=== PATIENT | female | born 1985 | race Hispanic/Latino ===

== ENCOUNTER 2017-02-20 09:41 | Emergency (ER) | payer MEDICAID ==
[2017-02-20 09:41] VITALS: BMI 32.2
--- NOTE | 2017-02-20 10:28 | ED PDOC ---
HPI: General Adult Time Seen by Provider: 02/20/17 09:53 Chief Complaint (Nursing): GI Problem Chief Complaint (Provider): Vomiting History Per: Patient History/Exam Limitations: no limitations Onset/Duration Of Symptoms: Days (4) Have you had recent travel within the past 21 days to any of the following countries: [place], [place], [place] or [place]?: No Current Symptoms Are (Timing): Still Present Additional Complaint(s): Vomiting, nonbloody today. Has had cough, congestion, runny nose, sore throat for 4 days. Also palpitations off and on. No chest pain, abd pain, back pain, weakness, headaches, leg pain. No fever. Multiple people at work with the same. Takes oxycodone daily 30mg. No numbness, tingles. Past Medical History Vital Signs: Last Vital Signs Temp 98.2 F 02/20/17 09:44 Pulse 80 02/20/17 09:44 Resp 19 02/20/17 09:44 BP 150/94 H 02/20/17 09:44 Pulse Ox 96 02/20/17 10:32 - Medical History PMH: Anxiety, Back Problems, Depression, Diabetes, Gastritis, Gastrointestinal Ulcer, Hiatal Hernia, HTN, Kidney Stones Denies: HIV, Seizures, Sexually Transmitted Disease - Surgical History Surgical History: - Family History Family History: States: Unknown Family Hx - Social History Current smoker - smoking cessation education provided: No Alcohol: None Drugs: Denies - Immunization History Hx Tetanus Toxoid Vaccination: No Hx Influenza Vaccination: No Hx Pneumococcal Vaccination: No - Home Medications Home Medications: Ambulatory Orders Medication Instructions Recorded Lactobacillus Acidophilus 1 tab PO DAILY 06/01/16 [Acidophilus] Lisinopril [Zestril] 20 mg PO DAILY 06/01/16 Omeprazole 20 mg PO DAILY 06/01/16 Insulin Glargine, Recombina 20 unit SQ DAILY 07/10/16 [Lantus] Insulin Lispro [Humalog] 1 units SQ PRN PRN 07/10/16 Levomefolate/Algal Oil 1 cap PO DAILY 07/10/16 [[place]-Algal Oil 7.5 mg Cap] Cyclobenzaprine [Cyclobenzaprine 10 mg PO TID PRN #30 tab 07/13/16 HCl] Gabapentin [Neurontin] 100 mg PO TID #0 cap 07/13/16 [place] Carbonate [[place] 300 mg PO TID #0 cap 07/13/16 Carbonate 300MG] Cephalexin [Keflex] 500 mg PO BID #14 capsule 08/27/16 Hydrocodone/Acetaminophen 1 each PO Q6 PRN #12 tablet 08/27/16 [Hydrocodon-Acetaminophen 5-325] Ondansetron [Zofran] 4 mg PO Q8H PRN #6 tab 02/20/17 - Allergies Allergies/Adverse Reactions: Allergies Allergy/AdvReac Type Severity Reaction Status Date / Time haloperidol [From Haldol] AdvReac FATIGUE Verified 08/27/16 18:15 haloperidol lactate AdvReac FATIGUE Verified 08/27/16 18:15 [From Haldol] ziprasidone HCl [From Geodon] AdvReac FATIGUE Verified 08/27/16 18:15 ziprasidone mesylate AdvReac FATIGUE Verified 08/27/16 18:15 [From Geodon] Review of Systems ROS Statement: Except As Marked, All Systems Reviewed And Found Negative ENT: Positive for: Nose Pain, Nose Congestion, Throat Pain Respiratory: Positive for: Cough Gastrointestinal: Positive for: Nausea, Vomiting Physical Exam - Reviewed Nursing Documentation Reviewed: Yes Vital Signs Reviewed: Yes - Physical Exam Appears: Positive for: Non-toxic, No Acute Distress Head Exam: Positive for: ATRAUMATIC, NORMAL INSPECTION, NORMOCEPHALIC Skin: Positive for: Normal Color, Warm, DRY Eye Exam: Positive for: EOMI, Normal appearance, PERRL ENT: Positive for: Normal ENT Inspection Neck: Positive for: Normal, Painless ROM, Supple Cardiovascular/Chest: Positive for: Regular Rate, Rhythm Respiratory: Positive for: CNT, Normal Breath Sounds Gastrointestinal/Abdominal: Positive for: Normal Exam, Bowel Sounds, Soft. Negative for: Tenderness Back: Positive for: Normal Inspection. Negative for: L CVA Tenderness, R CVA Tenderness Extremity: Positive for: Normal ROM. Negative for: Tenderness, Pedal Edema Neurologic/Psych: Positive for: Alert, weight loss sales consultant II-XII, Oriented. Negative for: Motor/Sensory Deficits - Laboratory Results Result Diagrams: 02/20/17 11:17 02/20/17 11:17 Interpretation Of Abn Labs: 343 glucose - ECG ECG: Positive for: Interpreted By Me, Viewed By Me ECG Rhythm: Positive for: Normal ST Segment, Sinus Rhythm O2 Sat by Pulse Oximetry: 96 Pulse Ox Interpretation: Normal - Progress ED Course And Treament: 1533: Stable. AAOx3. Pain free. Tolerated PO. Fu with pcp. Disposition - Clinical Impression Clinical Impression: URI (upper respiratory infection) - Patient ED Disposition Is Patient to be Admitted: No Counseled Patient/Family Regarding: Studies Performed, Diagnosis, Need For Followup, Rx Given - Disposition Referrals: [facility] [Outside] - 02/21/17 Disposition: Routine/Home Disposition Time: 13:34 Condition: STABLE Additional Instructions: Return if not better in 3 days. Prescriptions: Ondansetron [Zofran] 4 mg PO Q8H PRN #6 tab PRN Reason: Nausea/Vomiting Instructions: Upper Respiratory Infection (ED)
[2017-02-20] MEDS: Sodium Chloride 0.9% 1,000 ML IV STA (10:49)
[2017-02-20 11:21] LABS: BASO # 0.1 K/uL (0.0-0.2); BASO % 0.9 % (0.0-2.0); EOS # 0.3 K/uL (0.0-0.7); EOS % 2.9 % (0.0-4.0); LYMPH # 3.3 K/uL (1.0-4.3); LYMPH % 28.8 % (20.0-40.0); MEAN CORPUSCULAR HEMOGLOBIN 30.6 pg (27.0-31.0); MEAN CORPUSCULAR HGB CONC 33.7 g/dL (33.0-37.0); MEAN PLATELET VOLUME 10.1 fl (7.2-11.7); MONO # 0.8 K/uL (0.0-0.8); NEUT # 6.8 K/uL (1.8-7.0); NEUT % 60.4 % (50.0-75.0); NRBC % 0.1 % (0.0-0.0); WHITE BLOOD COUNT 11.3 K/uL (4.8-10.8)
[2017-02-20 11:23] LABS: MEAN CELL VOLUME 90.7 fl (81.0-99.0)
[2017-02-20 11:33] LABS: ALB/GLOB RATIO 1.4 (1.0-2.1); ALKALINE PHOSPHATASE 123 U/L (38-126); ALT/SGPT 34 U/L (9-52); AST/SGOT 25 U/L (14-36); BILIRUBIN,TOTAL 0.3 mg/dl (0.2-1.3); BLOOD UREA NITROGEN 15 mg/dl (7-17); CALCIUM 9.5 mg/dL (8.4-10.2); CARBON DIOXIDE 26 mmol/L (22-30); CHLORIDE 100 mmol/L (98-107); GFR AFRICAN-AMERICAN > 60; GLUCOSE,RANDOM 343 mg/dL (65-105); LIPASE 163 U/L (23-300); POTASSIUM 4.1 MMOL/L (3.6-5.0); SODIUM 139 mmol/l (132-148); TOTAL PROTEIN 6.6 G/DL (6.3-8.2)
--- NOTE | 2017-02-20 11:49 | CARD ---
APPROVED REPORT EKG Measurement Heart [id number] <Conclusion> Normal sinus rhythm Normal ECG
[2017-02-20 13:50] VITALS: BP 129/76; PULSE 77; RESP 16; TEMP 98; O2SAT 98
== END 2017-02-20 13:50 | disposition home or self-care (01) ==
LOC: H.ER 09:41
DX: J06.9 Acute upper respiratory infection, unspecified (principal); R11.10 Vomiting, unspecified; E11.9 Type 2 diabetes mellitus without complications; I10 Essential (primary) hypertension; Z79.4 Long term (current) use of insulin; R00.2 Palpitations

== ENCOUNTER 2017-06-04 18:40 | Inpatient (IN) | payer MEDICAID ==
[2017-06-04 18:40] VITALS: BMI 32.2
--- NOTE | 2017-06-04 20:25 | ED PDOC ---
HPI: Psych/Substance Abuse Time Seen by Provider: 06/04/17 19:13 Chief Complaint (Nursing): Substance Abuse Chief Complaint (Provider): Substance Abuse ED Caveat: Other (patient is intoxicated so history may be unreliable ) History Per: Patient History/Exam Limitations: no limitations Onset/Duration Of Symptoms: Hrs (prior to arrival ) Additional Complaint(s): Deborah Hernandez, 31 year old female with a past medical history inclusive of Depression, hypertension, diabetes, and chronic back pain, was found lying on the street and brought to the ED for drug abuse and alcohol intoxication. Upon arrival, the patient was lethargic but upon evaluation, the patient was awake. She admits to smoking weed, taking PCP, drinking alcohol, and then filling and taking Neurontin and Trazadone, for which she normally takes for chronic back pain. She states her medications are the reason as to why she is so sleepy. The patient reports feeling depressed due to her chronic pain and has thoughts of hurting herself. She denies any hallucinations. PMD: None provided Past Medical History Reviewed: Historical Data, Nursing Documentation, Vital Signs Vital Signs: Last Vital Signs Temp 100.6 F H 06/04/17 18:44 Pulse 148 H 06/04/17 18:44 Resp 22 06/04/17 18:44 BP 163/104 H 06/04/17 18:44 Pulse Ox 98 06/04/17 18:44 - Medical History PMH: Anxiety (drug induced), Back Problems, Bipolar Disorder, Depression, Diabetes, Gastritis, Gastrointestinal Ulcer, Hiatal Hernia, HTN, Kidney Stones ( history), Pancreatitis Denies: Hepatitis, HIV, Seizures, Sexually Transmitted Disease - Surgical History Surgical History: - Family History Family History: States: Unknown Family Hx - Social History Current smoker - smoking cessation education provided: Yes Alcohol: Other (drinks heavily) Drugs: Cannabis - Immunization History Hx Tetanus Toxoid Vaccination: No Hx Influenza Vaccination: No Hx Pneumococcal Vaccination: No - Home Medications Home Medications: Ambulatory Orders Medication Instructions Recorded Lisinopril [Zestril] 20 mg PO DAILY 06/01/16 Insulin Glargine, Recombina 30 unit SQ DAILY 07/10/16 [Lantus] Insulin Lispro [Humalog] 1 units SQ PRN PRN 07/10/16 Ibuprofen [Motrin] 600 mg PO TID #30 tab 04/28/17 Omeprazole 20 mg PO PRN PRN 05/01/17 Gabapentin [Neurontin] 300 mg PO TID 14 Days 05/05/17 Sertraline [Zoloft] 50 mg PO DAILY #14 tab 05/05/17 hydrOXYzine HCl [Atarax] 25 mg PO BID 14 Days 05/05/17 traZODone [Desyrel] 100 mg PO HS #14 tab 05/05/17 - Allergies Allergies/Adverse Reactions: Allergies Allergy/AdvReac Type Severity Reaction Status Date / Time quetiapine [From Seroquel] Allergy Verified 04/28/17 17:30 ciprofloxacin [From Cipro] AdvReac Verified 04/28/17 17:30 haloperidol [From Haldol] AdvReac FATIGUE Verified 04/28/17 17:30 haloperidol lactate AdvReac FATIGUE Verified 04/28/17 17:30 [From Haldol] ziprasidone HCl [From Geodon] AdvReac FATIGUE Verified 04/28/17 17:30 ziprasidone mesylate AdvReac FATIGUE Verified 04/28/17 17:30 [From Geodon] Review of Systems ROS Statement: Except As Marked, All Systems Reviewed And Found Negative Musculoskeletal: Positive for: Neck Pain, Back Pain Psych: Positive for: Anxiety, Depression, Suicidal ideation. Negative for: Other (hallucinations) Physical Exam - Reviewed Nursing Documentation Reviewed: Yes Vital Signs Reviewed: Yes - Physical Exam Appears: Negative for: Non-toxic (intoxicated ) Head Exam: Positive for: ATRAUMATIC, NORMAL INSPECTION, NORMOCEPHALIC Skin: Positive for: Normal Color, Warm, Dry Eye Exam: Positive for: EOMI, Conjunctival injection ENT: Positive for: Pharynx Is (clear), TM Is/Are (tachy mucous membranes), Other Neck: Positive for: Normal, Painless ROM, Supple Cardiovascular/Chest: Positive for: Regular Rate, Rhythm, Chest Non Tender. Negative for: Murmur Respiratory: Positive for: Normal Breath Sounds. Negative for: Respiratory Distress Gastrointestinal/Abdominal: Positive for: Normal Exam, Bowel Sounds, Soft. Negative for: Tenderness Back: Positive for: Normal Inspection. Negative for: Vertebral Tenderness Extremity: Positive for: Normal ROM. Negative for: Deformity Lymphatic: Negative for: Adenopathy Neurologic/Psych: Positive for: Alert, Oriented (x3), Mood/Affect (agitated mood with anxious and angry affect ). Negative for: Motor/Sensory Deficits - Laboratory Results Result Diagrams: 06/04/17 20:37 06/04/17 20:37 - ECG O2 Sat by Pulse Oximetry: 98 (RA) Pulse Ox Interpretation: Normal Medical Decision Making Medical Decision Making: Impression: Possible substance abuse and depression Plan: * ED EKG * Labs * Crisis Evaluation As Ordered * 1:1 Observation Continued Pt evaluated by front desk worker and stable for discharge. Scribe Attestation: Documented by Odette Sharp, acting as a scribe for Joycelyn Brandon MD. Provider Scribe Attestation: All medical record entries made by the Scribe were at my direction and personally dictated by me. I have reviewed the chart and agree that the record accurately reflects my personal performance of the history, physical exam, medical decision making, and the department course for this patient. I have also personally directed, reviewed, and agree with the discharge instructions and disposition. Disposition - Clinical Impression Clinical Impression: Polysubstance abuse Counseled Patient/Family Regarding: Studies Performed, Diagnosis - Disposition Referrals: [facility] [Outside] [facility] [Outside] (YOU CAN START GOING TO THE CLINIC TO BE REFERRED TO THE [facility]) Disposition: Routine/Home Disposition Time: 21:00 Condition: STABLE Instructions: Polysubstance Abuse (ED), Chronic Pain (ED)
[2017-06-04 20:42] LABS: BASO # 0.1 K/uL (0.0-0.2); BASO % 0.8 % (0.0-2.0); EOS # 0.2 K/uL (0.0-0.7); EOS % 1.8 % (0.0-4.0); HEMOGLOBIN 13.7 g/dL (12.0-16.0); MEAN CELL VOLUME 92.3 fl (81.0-99.0); MEAN CORPUSCULAR HGB CONC 33.6 g/dL (33.0-37.0); MEAN PLATELET VOLUME 9.5 fl (7.2-11.7); MONO # 0.8 K/uL (0.0-0.8); MONO % 7.3 % (0.0-10.0); NEUT # 6.3 K/uL (1.8-7.0); NEUT % 61.1 % (50.0-75.0); RBC 4.44 Mil/uL (3.80-5.20); RED CELL DISTRIBUTION WIDTH 13.5 % (11.5-14.5); WHITE BLOOD COUNT 10.4 K/uL (4.8-10.8)
[2017-06-04 20:49] LABS: SQUAMOUS EPITHIAL 3 /hpf (0-5); URINE AMORPHOUS SEDIMENT RARE /ul (<OCC); URINE BILIRUBIN NEGATIVE (NEGATIVE); URINE BLOOD NEGATIVE (NEGATIVE); URINE CLARITY SLIGHTY-CLOUDY (Clear); URINE COLOR YELLOW (YELLOW); URINE GLUCOSE (UA) NEG (Normal); URINE LEUKOCYTE ESTERASE NEG Leu/uL (Negative); URINE NITRATE NEGATIVE (NEGATIVE); URINE PROTEIN NEGATIVE (NEGATIVE); URINE UROBILINOGEN 0.2-1.0 mg/dL (0.2-1.0)
[2017-06-04 20:54] LABS: SALICYLATE < 1.0 mg/dl
[2017-06-04 20:56] LABS: ALB/GLOB RATIO 1.4 (1.0-2.1); ALBUMIN 4.7 g/dL (3.5-5.0); ALT/SGPT 88 U/L (9-52); AST/SGOT 53 U/L (14-36); BLOOD UREA NITROGEN 9 mg/dl (7-17); CALCIUM 9.8 mg/dL (8.4-10.2); GFR AFRICAN-AMERICAN > 60; GFR NON-AFRICAN AMERICAN > 60; MAGNESIUM 1.8 MG/DL (1.6-2.3)
[2017-06-04 21:00] LABS: ACETAMINOPHEN < 10.0 ug/ml (10.0-30.0)
[2017-06-04 21:48] LABS: BARBITURATES, UR NEGATIVE (NEGATIVE); BENZODIAZEPINES, UR POSITIVE (NEGATIVE); OPIATES, UR NEGATIVE (NEGATIVE); PHENCYCLIDINE, UR POSITIVE (NEGATIVE)
[2017-06-04] MEDS ORDERED: Magnesium Hydroxide Susp 30 ml UD PO PRN (23:45)
[2017-06-04] MEDS ORDERED: DiphenhydrAMINE 50 mg/ml Inj IM PRN (23:45)
[2017-06-04] MEDS ORDERED: Alum-Mag Hydrox-Simethicone Susp (30 mL) PO PRN (23:45)
[2017-06-04 23:54] VITALS: O2SAT 94
--- NOTE | 2017-06-05 07:26 | CARD ---
APPROVED REPORT EKG Measurement Heart [id number] <Conclusion> Sinus tachycardia Otherwise normal ECG
[2017-06-05] MEDS: Insulin Lispro (humaLOG) 100 Units/ml Inj SC SCH ×2 (08:24→12:52)
[2017-06-05] MEDS ORDERED: Pantoprazole 20 mg EC Tab PO SCH (09:00)
[2017-06-05 09:06] LABS: T4 7.35 ug/dl (5.5-11.0)
[2017-06-05 09:15] VITALS: BP 139/75; PULSE 81; RESP 18; TEMP 98.5
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
--- NOTE | 2017-06-05 12:17 | RAD ---
HISTORY: admission COMPARISON: 03/01/2016. FINDINGS: LUNGS: No active pulmonary disease. PLEURA: No significant pleural effusion identified, no pneumothorax apparent. CARDIOVASCULAR: Normal. OSSEOUS STRUCTURES: No significant abnormalities. VISUALIZED UPPER ABDOMEN: Normal. OTHER FINDINGS: None. IMPRESSION: No active disease. No significant interval change compared to the prior examination(s).
--- NOTE | 2017-06-05 13:01 | PCM.PSYCH ---
Initial Psychiatric Evaluation - Initial Psychiatric Evaluation Type of Admission: Voluntary Legal Status: Capacity Chief Complaint (in patient's own words): i was hoping i could leave today Patient's Reaction to Hospitalization: cooperative History of Present Illness and Precipitating Events: pt with a history of depression, pcp abuse/dependence. she is struggling to stay sober. she has chronic back pain which she states triggers her pcp use. she states she is [place] and taking her medications. her urine was also positive for benzos. she states she cannot recall the details of why she signed in to the hospital and she states she only has suicidal thoughts when she uses drugs. she states she is not suicidal and she wants to be referred to an outpatient program to help with her sobriety. she reports she is working. she lives with her bf of 15 years whom she states is supportive. she denies any symptoms of jorge, psychosis or depression. she is willing to follow up at [facility] and with her NA supports. Current Medications: Active Medications Generic Name Dose Route Start Last Admin Trade Name Freq PRN Reason Stop Dose Admin Acetaminophen 650 mg 06/04/17 23:45 Tylenol 325mg Tab PO Q4 PRN Pain, moderate (4-7) Al Hydrox/Mg Hydrox/Simethicone 30 ml 06/04/17 23:45 Maalox Plus 30 Ml PO Q4 PRN Dyspepsia Diphenhydramine HCl 50 mg 06/04/17 23:45 Benadryl IM Q6 PRN Extrapyramidal S/S Unable PO Diphenhydramine HCl 50 mg 06/04/17 23:45 Benadryl PO Q6 PRN Extrapyramidal Symptoms Diphenhydramine HCl 50 mg 06/04/17 23:50 Benadryl PO HS PRN Sleep Gabapentin 300 mg 06/05/17 09:00 06/05/17 09:09 Neurontin PO 300 mg TID SUNITA Administration Insulin Detemir 30 units 06/05/17 22:00 Levemir SC HS SUNITA Insulin Human Lispro 0 units 06/05/17 07:30 06/05/17 12:52 Humalog SC 2 units ACHS SUNITA Administration Protocol Lisinopril 20 mg 06/05/17 09:00 06/05/17 09:44 Zestril PO Not Given DAILY SUNITA Lorazepam 2 mg 06/04/17 23:45 Ativan IM Q4 PRN Anxiety/Agitation,Unable PO Lorazepam 1 mg 06/05/17 01:20 Ativan PO Q4 PRN Anxiety/Agitation Magnesium Hydroxide 30 ml 06/04/17 23:45 Milk Of Magnesia PO HS PRN Constipation Pantoprazole Sodium 20 mg 06/05/17 09:00 06/05/17 09:09 Protonix Ec Tab PO 20 mg DAILY SUNITA Administration Sertraline HCl 50 mg 06/05/17 11:45 Zoloft PO DAILY SUNITA Past Psychiatric History - Past Psychiatric History Previous Treatment History: Inpatient Prior Professional Help: history of previous admissions. history of pcp use Prior Psychiatric Treatment: states she stopped seroquel secondary to metabolic se Explanation of [facility] treatment[facility]. History of Abuse: does not disclose any abuse at this time. History of ETOH/Drug Use: pcp use- states she was sober or 7 days prior to this admission. admits to smoking mj 1-2 x a month, using alcohol ocassionally, but gets drunk every time she uses. has tried synthetic mj in past. has bought opioids off street to treat her back pain. smokes cigarettes occasionally History of Family Illness: denies Pertinent Medical Hx (Current Medical&Sleep Prob, Allergies): Allergies Allergy/AdvReac Type Severity Reaction Status Date / Time aripiprazole [From Abilify] Allergy ANAPHYLAXIS Verified 06/05/17 06:03 bupropion [From Wellbutrin] Allergy ANAPHYLAXIS Verified 06/05/17 06:03 escitalopram [From Lexapro] Allergy ANAPHYLAXIS Verified 06/05/17 06:03 lurasidone [From Latuda] Allergy ANAPHYLAXIS Verified 06/05/17 06:03 quetiapine [From Seroquel] Allergy ANAPHYLAXIS Verified 06/05/17 06:03 topiramate [From Topamax] Allergy ANAPHYLAXIS Verified 06/05/17 06:03 ciprofloxacin [From Cipro] AdvReac RASH Verified 06/05/17 06:03 haloperidol [From Haldol] AdvReac FATIGUE Verified 04/28/17 17:30 haloperidol lactate AdvReac FATIGUE Verified 04/28/17 17:30 [From Haldol] ziprasidone HCl [From Geodon] AdvReac FATIGUE Verified 04/28/17 17:30 ziprasidone mesylate AdvReac FATIGUE Verified 04/28/17 17:30 [From Geodon] Lisinopril [Zestril] 20 mg PO DAILY 06/01/16 Insulin Glargine, Recombina [Lantus] 30 unit SQ DAILY 07/10/16 Insulin Lispro [Humalog] 1 units SQ PRN PRN 07/10/16 Ibuprofen [Motrin] 600 mg PO TID #30 tab 04/28/17 Omeprazole 20 mg PO PRN PRN 05/01/17 Gabapentin [Neurontin] 300 mg PO TID 14 Days 05/05/17 Sertraline [Zoloft] 50 mg PO DAILY #14 tab 05/05/17 hydrOXYzine HCl [Atarax] 25 mg PO BID 14 Days 05/05/17 traZODone [Desyrel] 100 mg PO HS #14 tab 05/05/17 insulin dependent diabetes, back pain Review of Systems - Psychiatric Psychiatric: As Per [facility] Mental Status Examination - Personal Presentation Personal Presentation: Looks stated age - Affect Affect: Broad - Motor Activity Motor Activity: Calm - Reliability in Providing Information Reliability in Providing Information: Good - Speech Speech: Organized - Mood Mood: Neutral - Formal Thought Process Formal Thought Process: No Impairment - Obsessions/Compulsions Obsessions: No Compulsions: No - Cognitive Functions Orientation: Person, Place, Situation, Time Sensorium: Alert Attention/Concentration: Attentive Abstract Thinking: [place] Estimate of Intelligence: Average Judgement: Intact, as evidence by: Insight regarding need for hospitalization Memory: Recent intact, as evidence by: Ability to recall events of the day, Remote intact, as evidenced by: Abilit to recall sig. life events - Risk Risk: Suicidal (denies any suicidal or homicidal thoughts/plans or intent) - Strength & Assets Inventory Strength & Assets Inventory: Intelligence - Limitations Limitations: Other (substance use) DSM 5 DX - DSM 5 DSM 5 Diagnosis: pcp dependence depression unspecified - Recommended/Plan of Treatment Treatment Recommendations and Plan of Treatment: admit to 3 for safety and observation gather collateral information provide supportive therapy adjust medications hospitalist consult disposition planing- dc home with [facility] referral. Projected ELOS: 1-2 days - Smoking Cessation Smoking Cessation Initiated: No
[2017-06-05] MEDS ORDERED: Insulin Detemir 100 Units/ml Inj SC SCH (22:00)
== END 2017-06-05 13:56 | disposition home or self-care (01) | DRG 748 ==
LOC: H.ER 18:40 → H.ERHOLD 22:24 → H.PSYCH 23:36
PROVIDERS: ADMIT Psychiatry & Neurology Psychiatry; ATTEND Psychiatry & Neurology Psychiatry
PROC: HZ59ZZZ Individual Psychotherapy for Substance Abuse Treatment, Supportive (ICD-10-PCS; principal; 2017-06-04)
DX: F16.229 Hallucinogen dependence with intoxication, unspecified (principal); R45.851 Suicidal ideations; F12.129 Cannabis abuse with intoxication, unspecified; F13.129 Sedative, hypnotic or anxiolytic abuse with intoxication, unspecified; Z91.14 Patient's other noncompliance with medication regimen; I10 Essential (primary) hypertension; F32.9 Major depressive disorder, single episode, unspecified; F10.129 Alcohol abuse with intoxication, unspecified; Y90.0 Blood alcohol level of less than 20 mg/100 ml; F41.9 Anxiety disorder, unspecified; G89.29 Other chronic pain; K21.9 Gastro-esophageal reflux disease without esophagitis; E11.9 Type 2 diabetes mellitus without complications; Z79.4 Long term (current) use of insulin; K29.70 Gastritis, unspecified, without bleeding; K44.9 Diaphragmatic hernia without obstruction or gangrene; F17.210 Nicotine dependence, cigarettes, uncomplicated; R79.89 Other specified abnormal findings of blood chemistry

== ENCOUNTER 2017-06-18 11:51 | Emergency (ER) | payer MEDICAID ==
[2017-06-18 12:24] VITALS: RESP 16; TEMP 98; O2SAT 100
[2017-06-18 12:25] VITALS: BMI 34.4
[2017-06-18 13:15] LABS: SQUAMOUS EPITHIAL 6 /hpf (0-5); URINE BACTERIA MANY (<OCC); URINE BILIRUBIN NEGATIVE (NEGATIVE); URINE BLOOD NEGATIVE (NEGATIVE); URINE CLARITY CLOUDY (Clear); URINE COLOR YELLOW (YELLOW); URINE GLUCOSE (UA) 50 mg/dL (Normal); URINE LEUKOCYTE ESTERASE NEG Leu/uL (Negative); URINE NITRATE NEGATIVE (NEGATIVE); URINE PROTEIN NEGATIVE (NEGATIVE); URINE UROBILINOGEN 0.2-1.0 mg/dL (0.2-1.0)
[2017-06-18 13:27] LABS: BARBITURATES, UR NEGATIVE (NEGATIVE)
[2017-06-18 13:28] LABS: BENZODIAZEPINES, UR NEGATIVE (NEGATIVE)
[2017-06-18 13:31] LABS: OPIATES, UR NEGATIVE (NEGATIVE)
[2017-06-18 13:32] LABS: PHENCYCLIDINE, UR POSITIVE (NEGATIVE)
[2017-06-18 13:37] LABS: BASO # 0.1 K/uL (0.0-0.2); BASO % 0.8 % (0.0-2.0); EOS # 0.1 K/uL (0.0-0.7); EOS % 0.7 % (0.0-4.0); HEMOGLOBIN 13.5 g/dL (12.0-16.0); LYMPH % 21.2 % (20.0-40.0); MEAN CELL VOLUME 92.6 fl (81.0-99.0); MEAN CORPUSCULAR HEMOGLOBIN 32.1 pg (27.0-31.0); MEAN CORPUSCULAR HGB CONC 34.7 g/dL (33.0-37.0); MONO # 0.8 K/uL (0.0-0.8); NEUT # 6.3 K/uL (1.8-7.0); NEUT % 68.3 % (50.0-75.0); RBC 4.19 Mil/uL (3.80-5.20); RED CELL DISTRIBUTION WIDTH 13.7 % (11.5-14.5); WHITE BLOOD COUNT 9.3 K/uL (4.8-10.8)
[2017-06-18 13:51] LABS: ALBUMIN 4.4 g/dL (3.5-5.0)
[2017-06-18 13:54] LABS: ALB/GLOB RATIO 1.4 (1.0-2.1); ALT/SGPT 33 U/L (9-52); AST/SGOT 24 U/L (14-36); BLOOD UREA NITROGEN 7 mg/dl (7-17); CALCIUM 10.2 mg/dL (8.4-10.2); GFR AFRICAN-AMERICAN > 60; GFR NON-AFRICAN AMERICAN > 60; LIPASE 187 U/L (23-300)
[2017-06-18 15:51] VITALS: BP 158/95; PULSE 64
--- NOTE | 2017-06-18 15:53 | ED PDOC ---
HPI: Abdomen Time Seen by Provider: 06/18/17 13:14 Chief Complaint (Nursing): GI Problem Chief Complaint (Provider): abdominal pain/vomiting History Per: Patient (31 y/o female h/o polysubstance abuse here with abdominal discomfort and one episode of vomiting yesterday. NOtes fullness in abdomen and urinary frequency. denies any fevers/chills. Admits use of pcp today. States she attempted detox of alcohol/pcp x 4 days. Notes suicidal ideation x 4 days but not today. No plan noted.) Past Medical History Reviewed: Historical Data, Nursing Documentation, Vital Signs Vital Signs: Last Vital Signs Temp 98.0 F 06/18/17 12:23 Pulse 90 06/18/17 12:23 Resp 16 06/18/17 12:23 BP 187/109 H 06/18/17 12:23 Pulse Ox 100 06/18/17 12:23 - Medical History PMH: Anxiety (drug induced), Back Problems, Bipolar Disorder, Depression, Diabetes, Gastritis, Gastrointestinal Ulcer, Hiatal Hernia, HTN, Kidney Stones ( history), Pancreatitis Denies: Hepatitis, HIV, Chronic Kidney Disease, Seizures, Sexually Transmitted Disease - Surgical History Surgical History: - Family History Family History: States: Unknown Family Hx - Immunization History Hx Tetanus Toxoid Vaccination: No Hx Influenza Vaccination: No Hx Pneumococcal Vaccination: No - Home Medications Home Medications: Ambulatory Orders Medication Instructions Recorded Lisinopril [Zestril] 20 mg PO DAILY 06/01/16 Insulin Glargine, Recombina 30 unit SQ DAILY 07/10/16 [Lantus] Insulin Lispro [Humalog] 1 units SQ PRN PRN 07/10/16 Ibuprofen [Motrin Tab] 600 mg PO TID #30 tab 04/28/17 Omeprazole 20 mg PO PRN PRN 05/01/17 Gabapentin [Neurontin] 300 mg PO TID 14 Days 05/05/17 Sertraline [Zoloft] 50 mg PO DAILY #14 tab 05/05/17 hydrOXYzine HCl [Atarax] 25 mg PO BID 14 Days 05/05/17 traZODone [Desyrel] 100 mg PO HS #14 tab 05/05/17 Docusate Sodium [Colace] 100 mg PO BID #20 capsule 06/18/17 Phosphate Enema [Fleet Enema 135 135 ml RC ONCE PRN #1 nma 06/18/17 Ml] - Allergies Allergies/Adverse Reactions: Allergies Allergy/AdvReac Type Severity Reaction Status Date / Time aripiprazole [From Abilify] Allergy ANAPHYLAXIS Verified 06/05/17 06:03 bupropion [From Wellbutrin] Allergy ANAPHYLAXIS Verified 06/05/17 06:03 escitalopram [From Lexapro] Allergy ANAPHYLAXIS Verified 06/05/17 06:03 lurasidone [From Latuda] Allergy ANAPHYLAXIS Verified 06/05/17 06:03 quetiapine [From Seroquel] Allergy ANAPHYLAXIS Verified 06/05/17 06:03 topiramate [From Topamax] Allergy ANAPHYLAXIS Verified 06/05/17 06:03 ciprofloxacin [From Cipro] AdvReac RASH Verified 06/05/17 06:03 haloperidol [From Haldol] AdvReac FATIGUE Verified 04/28/17 17:30 haloperidol lactate AdvReac FATIGUE Verified 04/28/17 17:30 [From Haldol] ziprasidone HCl [From Geodon] AdvReac FATIGUE Verified 04/28/17 17:30 ziprasidone mesylate AdvReac FATIGUE Verified 04/28/17 17:30 [From Geodon] Review of Systems ROS Statement: Except As Marked, All Systems Reviewed And Found Negative Physical Exam - Reviewed Nursing Documentation Reviewed: Yes Vital Signs Reviewed: Yes - Physical Exam Appears: Positive for: Well, Non-toxic, No Acute Distress Head Exam: Positive for: ATRAUMATIC, NORMAL INSPECTION, NORMOCEPHALIC Skin: Positive for: Normal Color, Warm, DRY Eye Exam: Positive for: EOMI, Normal appearance, PERRL ENT: Positive for: Normal ENT Inspection Neck: Positive for: Normal, Painless ROM Cardiovascular/Chest: Positive for: Regular Rate, Rhythm Respiratory: Positive for: CNT, Normal Breath Sounds Gastrointestinal/Abdominal: Positive for: Normal Exam, Bowel Sounds, Soft Back: Positive for: Normal Inspection Extremity: Positive for: Normal ROM Neurologic/Psych: Positive for: Alert, Oriented - Laboratory Results Result Diagrams: 06/18/17 13:20 06/18/17 13:20 Urine POC: Negative - ECG O2 Sat by Pulse Oximetry: 100 - Progress ED Course And Treament: BP 159/95 pepcid 20 mg iv x1 dose zofran 4 mg iv x 1 dose xry obstructive: stool noted; no air fluid levels noted seen by crisis cleared by Dr. ramos diagnosis substance abuse Disposition - Clinical Impression Clinical Impression: Constipation, Substance abuse - Patient ED Disposition Is Patient to be Admitted: No - Disposition Referrals: [facility] [Outside] Juan M Boogie MD [Staff Provider] - Disposition: Routine/Home Disposition Time: 15:54 Condition: FAIR Prescriptions: Docusate Sodium [Colace] 100 mg PO BID #20 capsule Phosphate Enema [Fleet Enema 135 Ml] 135 ml RC ONCE PRN #1 nma PRN Reason: Constipation Instructions: Constipation (GEN), Polysubstance Abuse (ED)
[2017-06-18] MEDS ORDERED: Dextrose 50% SYRINGE Inj (50 ml) ONE ×3 (17:08→19:06)
[2017-06-18] MEDS ORDERED: Potassium Chloride 20 mEq ER Tab PO ONE ×2 (19:10→19:12)
--- NOTE | 2017-06-19 10:46 | RAD ---
PROCEDURE: Radiographs of the chest and abdomen (obstructive series) HISTORY: ABDOMINAL DISTENSION COMPARISON: Chest radiograph 06/04/2017. TECHNIQUE: AP radiograph of the chest, with upright and supine radiographs of the abdomen. FINDINGS: CHEST: Lungs: Clear. Cardiovascular: Normal size heart. No pulmonary vascular congestion. Pleura: No pleural fluid. No pneumothorax. Other findings: None. ABDOMEN AND PELVIS: Bowel: Nonobstructive bowel gas pattern. Prominent retained fecal material seen at the ascending colon, mild at the descending colon and rectosigmoid segments. No evidence of mechanical obstruction. Free air: None. Bones: Unremarkable. Other findings: Multiple phlebolith type calcifications seen scattered at the inferior pelvis soft tissues. IMPRESSION: Nonobstructive bowel gas pattern. No free intrarenal gas or suspicious central calcifications. Consider follow-up CT of the abdomen pelvis if clinically warranted.
== END 2017-06-18 16:20 | disposition home or self-care (01) ==
LOC: H.ER 11:51
DX: F19.10 Other psychoactive substance abuse, uncomplicated (principal); K59.00 Constipation, unspecified; R73.9 Hyperglycemia, unspecified; R45.851 Suicidal ideations

== ENCOUNTER 2017-06-18 16:37 | Inpatient (IN) | payer MEDICAID ==
[2017-06-18 16:37] VITALS: BMI 34.4
[2017-06-18] MEDS ORDERED: Dextrose 50% SYRINGE Inj (50 ml) IVP ONE ×4 (17:17→23:43)
--- NOTE | 2017-06-18 17:23 | ED PDOC ---
HPI: General Adult Time Seen by Provider: 06/18/17 17:08 Chief Complaint (Nursing): Lower Extremity Problem/Injury Chief Complaint (Provider): Low blood sugar History Per: Patient History/Exam Limitations: no limitations Onset/Duration Of Symptoms: Mins Additional Complaint(s): The Patient is a 31yo female, presents to ED for evaluation of low blood sugar. Patient was seen earlier today in the ED for complaints of abdominal pain, nausea and vomiting. Patient had a full workup done with labs, iv fluids and was discharged home. Patient now reports she took 200 units of insulin in the room before being discharged and when she was outside the facility, she was sweating and came back to be seen. Of note, patient admits to taking PCP today but reports she has been attempting to get clean for the past 4 days. She denies any other drug usage. Patient reports she took the insulin because "she didn't know what to do" and currently denies any suicidal ideation. Past medical history: Hypertension, DM, GERD, Anxiety, Bipolar disorder, depression Past Medical History Reviewed: Historical Data, Nursing Documentation, Vital Signs Vital Signs: Last Vital Signs Temp 97.6 F 06/18/17 17:53 Pulse 66 06/18/17 17:53 Resp 16 06/18/17 17:53 BP 147/84 06/18/17 17:53 Pulse Ox 97 06/18/17 17:53 - Medical History PMH: Anxiety (drug induced), Back Problems, Bipolar Disorder, Depression, Diabetes, Gastritis, Gastrointestinal Ulcer, Hiatal Hernia, HTN, Kidney Stones ( history), Pancreatitis Denies: Hepatitis, HIV, Chronic Kidney Disease, Seizures, Sexually Transmitted Disease - Surgical History Surgical History: - Family History Family History: States: Unknown Family Hx - Immunization History Hx Tetanus Toxoid Vaccination: No Hx Influenza Vaccination: No Hx Pneumococcal Vaccination: No - Home Medications Home Medications: Ambulatory Orders Medication Instructions Recorded Insulin Glargine, Recombina 40 unit SQ DAILY 07/10/16 [Lantus] Gabapentin [Neurontin] 300 mg PO TID 14 Days 05/05/17 Sertraline [Zoloft] 50 mg PO DAILY #14 tab 05/05/17 Docusate Sodium [Colace] 100 mg PO BID #20 capsule 06/18/17 HCTZ/Losartan Potassium [Hyzaar 1 tab PO DAILY 06/18/17 12.5 mg-50 mg] Insulin Regular [HumuLIN R] unit SC ASDIR 06/18/17 Pantoprazole Sodium [Protonix] 40 mg PO DAILY 06/18/17 Phosphate Enema [Fleet Enema 135 135 ml RC ONCE PRN #1 nma 06/18/17 Ml] traZODone [Desyrel] 100 mg PO HS 06/18/17 - Allergies Allergies/Adverse Reactions: Allergies Allergy/AdvReac Type Severity Reaction Status Date / Time aripiprazole [From Abilify] Allergy ANAPHYLAXIS Verified 06/05/17 06:03 bupropion [From Wellbutrin] Allergy ANAPHYLAXIS Verified 06/05/17 06:03 escitalopram [From Lexapro] Allergy ANAPHYLAXIS Verified 06/05/17 06:03 lurasidone [From Latuda] Allergy ANAPHYLAXIS Verified 06/05/17 06:03 quetiapine [From Seroquel] Allergy ANAPHYLAXIS Verified 06/05/17 06:03 topiramate [From Topamax] Allergy ANAPHYLAXIS Verified 06/05/17 06:03 ciprofloxacin [From Cipro] AdvReac RASH Verified 06/05/17 06:03 haloperidol [From Haldol] AdvReac FATIGUE Verified 04/28/17 17:30 haloperidol lactate AdvReac FATIGUE Verified 04/28/17 17:30 [From Haldol] ziprasidone HCl [From Geodon] AdvReac FATIGUE Verified 04/28/17 17:30 ziprasidone mesylate AdvReac FATIGUE Verified 04/28/17 17:30 [From Geodon] Review of Systems Psych: Positive for: Anxiety, Depression, Suicidal ideation Physical Exam - Reviewed Nursing Documentation Reviewed: Yes Vital Signs Reviewed: Yes - Physical Exam Appears: Positive for: No Acute Distress (actively crying) Head Exam: Positive for: ATRAUMATIC, NORMAL INSPECTION, NORMOCEPHALIC Skin: Positive for: Normal Color Eye Exam: Positive for: Normal appearance Neck: Positive for: Normal Cardiovascular/Chest: Positive for: Regular Rate, Rhythm Respiratory: Positive for: Normal Breath Sounds. Negative for: Respiratory Distress Gastrointestinal/Abdominal: Positive for: Normal Exam, Soft. Negative for: Tenderness Back: Positive for: Normal Inspection. Negative for: L CVA Tenderness, R CVA Tenderness Extremity: Positive for: Normal ROM. Negative for: Pedal Edema, Deformity, Swelling Neurologic/Psych: Positive for: Alert, Oriented, Mood/Affect (actively crying). Negative for: Motor/Sensory Deficits - Laboratory Results Result Diagrams: 06/18/17 17:43 06/18/17 17:43 Interpretation Of Abn Labs: 2.6 k - ECG ECG: Positive for: Interpreted By Me, Viewed By Me ECG Rhythm: Positive for: Normal QRS, Normal ST Segment, Sinus Rhythm - Progress ED Course And Treament: 1847: Stable. AAOx3. Will need admit tele for further eval and monitoring for sugar dropping. K low likely from overdose on insulin. Spoke with Dr. Joseph, will admit tele obs. Medical Decision Making Medical Decision Making: Time: 1724 Impression: Low blood sugar s/p intentional ingestion of 200 units of insulin Plan: -- Dextrose 50% 50 ml IV -- D5/NS 500ml 100ml/hr -- Labs -- 1:1 observation Reassess Time: 1726 Spoke with poison control who advised to continue monitoring patient and need for observation for 24 hours. Also informed to treat patient symptomatically. Scribe Attestation: Documented by Mariah Aguirre acting as a scribe for Jeremias Chacon MD. Provider Attestation: All medical record entries made by the Scribe were at my direction and personally dictated by me. I have reviewed the chart and agree that the record accurately reflects my personal performance of the history, physical exam, medical decision making, and the department course for this patient. I have also personally directed, reviewed, and agree with the discharge instructions and disposition. Disposition - Clinical Impression Clinical Impression: Hypoglycemia, exogenous hyperinsulinemia, Suicidal ideation, Hypokalemia - Patient ED Disposition Is Patient to be Admitted: Yes Counseled Patient/Family Regarding: Studies Performed, Diagnosis - Disposition Disposition Time: 18:52 Condition: FAIR - Pt Status Changed To: Hospital Disposition Of: Observation - POA Present On Arrival: Poor Glycemic Control
[2017-06-18 17:59] LABS: BASO # 0.1 K/uL (0.0-0.2); BASO % 0.5 % (0.0-2.0); EOS # 0.1 K/uL (0.0-0.7); EOS % 0.6 % (0.0-4.0); HEMOGLOBIN 14.2 g/dL (12.0-16.0); LYMPH # 5.3 K/uL (1.0-4.3); LYMPH % 40.3 % (20.0-40.0); MEAN PLATELET VOLUME 10.5 fl (7.2-11.7); MONO # 1.1 K/uL (0.0-0.8); MONO % 8.6 % (0.0-10.0); NEUT # 6.6 K/uL (1.8-7.0); NRBC % 0.1 % (0.0-0.0); RBC 4.57 Mil/uL (3.80-5.20); RED CELL DISTRIBUTION WIDTH 14.1 % (11.5-14.5); WHITE BLOOD COUNT 13.2 K/uL (4.8-10.8)
[2017-06-18 18:03] LABS: ALB/GLOB RATIO 1.5 (1.0-2.1); ALBUMIN 4.9 g/dL (3.5-5.0); ALT/SGPT 45 U/L (9-52); AST/SGOT 27 U/L (14-36); BLOOD UREA NITROGEN 6 mg/dl (7-17); GFR AFRICAN-AMERICAN > 60; GFR NON-AFRICAN AMERICAN > 60
[2017-06-18] MEDS ORDERED: Potassium Chloride 20 mEq ER Tab PO ONE (18:46)
[2017-06-18] MEDS ORDERED: Dextrose 50% SYRINGE Inj (50 ml) ONE (23:43)
[2017-06-18] MEDS ORDERED: Dextrose 50% SYRINGE Inj (50 ml) IVP PRN (23:44)
[2017-06-18] MEDS ORDERED: Dextrose 50% SYRINGE Inj (50 ml) IV PRN (23:44)
[2017-06-18] MEDS ORDERED: Glucagon Recombinant 1 mg Inj IM PRN (23:44)
[2017-06-19 06:40] LABS: HEMOGLOBIN 12.3 g/dL (12.0-16.0); MEAN CELL VOLUME 94.3 fl (81.0-99.0); MEAN CORPUSCULAR HEMOGLOBIN 31.3 pg (27.0-31.0); MEAN CORPUSCULAR HGB CONC 33.1 g/dL (33.0-37.0); RBC 3.93 Mil/uL (3.80-5.20); RED CELL DISTRIBUTION WIDTH 13.9 % (11.5-14.5); WHITE BLOOD COUNT 13.1 K/uL (4.8-10.8)
[2017-06-19 07:03] LABS: ALB/GLOB RATIO 1.3 (1.0-2.1); ALBUMIN 3.4 g/dL (3.5-5.0); ALT/SGPT 33 U/L (9-52); AST/SGOT 24 U/L (14-36); BLOOD UREA NITROGEN 8 mg/dl (7-17); GFR AFRICAN-AMERICAN > 60; GFR NON-AFRICAN AMERICAN > 60
[2017-06-19] MEDS: Insulin Regular 100 units/ml SC SCH ×4 (07:12→22:00)
[2017-06-19 08:52] LABS: SALICYLATE < 1.0 mg/dl
[2017-06-19 08:53] LABS: ACETAMINOPHEN < 10.0 ug/ml (10.0-30.0)
--- NOTE | 2017-06-19 08:57 | CP.PCM.HP ---
History of Present Illness - History of Present Illness History of Present Illness: 31 y/o female with a PMHx remarkable for multiple suicide attempts/ED visits, HTN, IDDM2, Anxiety, depression, bipolar disorder and GERD whom presented to [facility] ED for evaluation of low blood sugar. Patient was seen same day in the ED with complaints of abdominal pain, nausea and vomiting. Patient had a full workup done with labs, was given IV fluids and was then discharged home. Shortly after being discharged from the ER, she reports she took 200 units of insulin w/o intention to self harm. She is unsure why she took so much. She returned to the [facility] ED once she began profusely sweating and feeling anxious. She also claims to have been taking PCP the day of evaluation even though she has been attempting to clean up. Denies any other substance abuse. Denies visual /auditory hallucinations, suicidal/homicidal ideation. No other complaints. ROS: 12 points reviewed found to be negative. PMD: n/a PMHx: HTN, IDDM2, substance abuse, Anxiety, depression, bipolar Meds: as per med rec ALL: as listed PSurghx: SocialHx: PCP use, denies other illicit drugs/ETOH FamilyHx: mother breast CA, sister has seizure disorder, brother has bipolar Present on Admission - Present on Admission Any Indicators Present on Admission: No History of Uncontrolled Diabetes: Yes Past Patient History - Infectious Disease Hx of Infectious Diseases: None - Tetanus Immunizations Tetanus Immunization: Unknown - Past Medical History & Family History Past Medical History?: Yes - Past Social History Smoking Status: Light Smoker < 10 Cigarettes Daily - CARDIAC Hx Cardiac Disorders: Yes (HTN) - PULMONARY Hx Tuberculosis: No - NEUROLOGICAL Hx Seizures: No - HEENT Hx HEENT Problems: Yes (wears glasses) - RENAL Hx Chronic Kidney Disease: Yes (kidney stones) - ENDOCRINE/METABOLIC Hx Endocrine Disorders: Yes (DM) - HEMATOLOGICAL/ONCOLOGICAL Hx Human Immunodeficiency Virus (HIV): No - INTEGUMENTARY Hx Dermatological Problems: No - MUSCULOSKELETAL/RHEUMATOLOGICAL Hx Falls: No - GASTROINTESTINAL Hx Gastritis: Yes Hx Pancreatitis: Yes - GENITOURINARY/GYNECOLOGICAL Hx Sexually Transmitted Disorders: No - PSYCHIATRIC Hx Substance Use: No - SURGICAL HISTORY Hx Surgeries: Yes Hx Section: Yes (3 (2 ABORTIONS ONE )) Hx Dilation and Curettage: Yes - ANESTHESIA Hx Anesthesia: Yes Hx Anesthesia Reactions: No Hx Malignant Hyperthermia: No Meds Allergies/Adverse Reactions: Allergies Allergy/AdvReac Type Severity Reaction Status Date / Time aripiprazole [From Abilify] Allergy ANAPHYLAXIS Verified 06/05/17 06:03 bupropion [From Wellbutrin] Allergy ANAPHYLAXIS Verified 06/05/17 06:03 escitalopram [From Lexapro] Allergy ANAPHYLAXIS Verified 06/05/17 06:03 lurasidone [From Latuda] Allergy ANAPHYLAXIS Verified 06/05/17 06:03 quetiapine [From Seroquel] Allergy ANAPHYLAXIS Verified 06/05/17 06:03 topiramate [From Topamax] Allergy ANAPHYLAXIS Verified 06/05/17 06:03 ciprofloxacin [From Cipro] AdvReac RASH Verified 06/05/17 06:03 haloperidol [From Haldol] AdvReac FATIGUE Verified 04/28/17 17:30 haloperidol lactate AdvReac FATIGUE Verified 04/28/17 17:30 [From Haldol] ziprasidone HCl [From Geodon] AdvReac FATIGUE Verified 04/28/17 17:30 ziprasidone mesylate AdvReac FATIGUE Verified 04/28/17 17:30 [From Geodon] Physical Exam - Constitutional Appears: Non-toxic, No Acute Distress - Head Exam Head Exam: ATRAUMATIC, NORMOCEPHALIC - Eye Exam Eye Exam: EOMI. absent: Conjunctival injection Pupil Exam: PERRL - ENT Exam ENT Exam: Mucous Membranes Moist - Respiratory Exam Respiratory Exam: Clear to Auscultation Bilateral, NORMAL BREATHING PATTERN - Cardiovascular Exam Cardiovascular Exam: REGULAR RHYTHM, RRR. absent: JVD - GI/Abdominal Exam GI & Abdominal Exam: Normal Bowel Sounds, Soft. absent: Tenderness - Extremities Exam Extremities exam: Positive for: normal inspection - Neurological Exam Neurological exam: Alert, CN II-XII Intact, Oriented x3, Reflexes Normal - Skin Skin Exam: Dry, Intact, Normal Color Results - Vital Signs Recent Vital Signs: Last Vital Signs Temp 98.3 F 06/19/17 08:18 Pulse 62 06/19/17 08:18 Resp 18 06/19/17 08:18 BP 111/72 06/19/17 08:18 Pulse Ox 95 06/19/17 08:18 - Labs Result Diagrams: 06/19/17 05:00 06/19/17 05:00 Labs: Laboratory Results - last 24 hr 06/18/17 06/18/17 06/18/17 20:01 22:38 23:40 WBC RBC Hgb Hct MCV MCH MCHC RDW Plt Count Sodium Potassium Chloride Carbon Dioxide Anion Gap BUN Creatinine Est GFR ( Amer) Est GFR (Non-Af Amer) POC Glucose (mg/dL) 69 65 38 L* Random Glucose Calcium Total Bilirubin AST ALT Alkaline Phosphatase Total Protein Albumin Globulin Albumin/Globulin Ratio Salicylates Acetaminophen 06/19/17 06/19/17 06/19/17 00:37 05:00 05:00 WBC 13.1 H RBC 3.93 Hgb 12.3 Hct 37.0 MCV 94.3 MCH 31.3 H MCHC 33.1 RDW 13.9 Plt Count 228 Sodium 141 Potassium 4.4 Chloride 108 H Carbon Dioxide 27 Anion Gap 10 BUN 8 Creatinine 0.7 Est GFR ( Amer) > 60 Est GFR (Non-Af Amer) > 60 POC Glucose (mg/dL) 99 Random Glucose 223 H Calcium 9.0 Total Bilirubin 0.2 AST 24 ALT 33 Alkaline Phosphatase 88 Total Protein 6.0 L Albumin 3.4 L D Globulin 2.6 Albumin/Globulin Ratio 1.3 Salicylates Acetaminophen 06/19/17 06/19/17 05:42 07:29 WBC RBC Hgb Hct MCV MCH MCHC RDW Plt Count Sodium Potassium Chloride Carbon Dioxide Anion Gap BUN Creatinine Est GFR ( Amer) Est GFR (Non-Af Amer) POC Glucose (mg/dL) 238 H Random Glucose Calcium Total Bilirubin AST ALT Alkaline Phosphatase Total Protein Albumin Globulin Albumin/Globulin Ratio Salicylates < 1.0 Acetaminophen < 10.0 L Assessment & Plan (1) Insulin overdose Assessment and Plan: monitor blood sugar Status: Acute (2) Suicide attempt Assessment and Plan: 1:1 psych consult appreciated Status: Acute
[2017-06-19] MEDS: Pantoprazole 40 mg EC Tab PO SCH (09:01)
[2017-06-19] MEDS: HCTZ/Losartan 12.5/50 Tab PO SCH (09:01)
[2017-06-19] MEDS: Enoxaparin 40 mg Syringe SC SCH (09:01)
[2017-06-19 09:46] LABS: BARBITURATES, UR NEGATIVE (NEGATIVE); BENZODIAZEPINES, UR NEGATIVE (NEGATIVE); OPIATES, UR NEGATIVE (NEGATIVE); PHENCYCLIDINE, UR POSITIVE (NEGATIVE)
--- NOTE | 2017-06-19 13:25 | CARD ---
APPROVED REPORT EKG Measurement Heart [id number] <Conclusion> Normal sinus rhythm Normal ECG
--- NOTE | 2017-06-19 13:44 | CP.PCM.CON ---
History of Present Illness - History of Present Illness History of Present Illness: psychiatry consult ordered by dr watts reason: suicide attempt cc: of course i was trying to kill myself hpi: 31 yo female, history of pcp dependence. she is living with her partner of several years. pt presented to ER with medical complaints. pt was "frustrated" after being discharged and injected self with 200 unit of insulin. pt states she was using pcp. she states she was suicidal. she states she has been overwhelmed and frustrated with events in her life. she is struggling staying sober from pcp. pt is seeking in admission at this point to help keep herself safe as she is worried about her impulse control in the context of her drug use and her psychosocial stressors. pt is also c/o chronic pain. past psych: history of previous admissions to 3. social: lives [place] with [place]. other. medical: as per dr. watts substance abuse: recent pcp use. mse: alert, oriented x 3. mood is irritable/anxious. affect congruent. pt endorses some suicidal thoughts. denies hi. denies a/v hallucinations. poor impulse control. fair insight. assessment: pcp dependence mood disorder unspecified recommendation: admit to 3np for further treatment call access center and [facility] to facilitate transfer 1:1 supervision until transfer Past Patient History - Infectious Disease Hx of Infectious Diseases: None - Tetanus Immunizations Tetanus Immunization: Unknown - Past Medical History & Family History Past Medical History?: Yes - Past Social History Smoking Status: Light Smoker < 10 Cigarettes Daily - CARDIAC Hx Cardiac Disorders: Yes (HTN) - PULMONARY Hx Tuberculosis: No - NEUROLOGICAL Hx Seizures: No - HEENT Hx HEENT Problems: Yes (wears glasses) - RENAL Hx Chronic Kidney Disease: Yes (kidney stones) - ENDOCRINE/METABOLIC Hx Endocrine Disorders: Yes (DM) - HEMATOLOGICAL/ONCOLOGICAL Hx Human Immunodeficiency Virus (HIV): No - INTEGUMENTARY Hx Dermatological Problems: No - MUSCULOSKELETAL/RHEUMATOLOGICAL Hx Falls: No - GASTROINTESTINAL Hx Gastritis: Yes Hx Pancreatitis: Yes - GENITOURINARY/GYNECOLOGICAL Hx Sexually Transmitted Disorders: No - PSYCHIATRIC Hx Substance Use: No - SURGICAL HISTORY Hx Surgeries: Yes Hx Section: Yes (3 (2 ABORTIONS ONE )) Hx Dilation and Curettage: Yes - ANESTHESIA Hx Anesthesia: Yes Hx Anesthesia Reactions: No Hx Malignant Hyperthermia: No Meds Allergies/Adverse Reactions: Allergies Allergy/AdvReac Type Severity Reaction Status Date / Time aripiprazole [From Abilify] Allergy ANAPHYLAXIS Verified 06/05/17 06:03 bupropion [From Wellbutrin] Allergy ANAPHYLAXIS Verified 06/05/17 06:03 escitalopram [From Lexapro] Allergy ANAPHYLAXIS Verified 06/05/17 06:03 lurasidone [From Latuda] Allergy ANAPHYLAXIS Verified 06/05/17 06:03 quetiapine [From Seroquel] Allergy ANAPHYLAXIS Verified 06/05/17 06:03 topiramate [From Topamax] Allergy ANAPHYLAXIS Verified 06/05/17 06:03 ciprofloxacin [From Cipro] AdvReac RASH Verified 06/05/17 06:03 haloperidol [From Haldol] AdvReac FATIGUE Verified 04/28/17 17:30 haloperidol lactate AdvReac FATIGUE Verified 04/28/17 17:30 [From Haldol] ziprasidone HCl [From Geodon] AdvReac FATIGUE Verified 04/28/17 17:30 ziprasidone mesylate AdvReac FATIGUE Verified 04/28/17 17:30 [From Geodon] - Medications Medications: Current Medications Acetaminophen (Tylenol 325mg Tab) 650 mg PO Q6 PRN PRN Reason: Pain, Mild (1-3) Last Admin: 06/19/17 10:32 Dose: 650 mg Dextrose (Dextrose 50% Inj) 0 ml IV STAT PRN; Protocol PRN Reason: Hyglycemia Protocol Dextrose (Dextrose 50% Inj) 50 ml IVP ONCE PRN PRN Reason: Hypoglycemia Dextrose (Glutose 15) 0 gm PO ONCE PRN; Protocol PRN Reason: Hypoglycemia Protocol Docusate Sodium (Colace) 100 mg PO BID [facility] Last Admin: 06/19/17 09:00 Dose: 100 mg Enoxaparin Sodium (Lovenox) 40 mg SC DAILY [facility] PRN Reason: Protocol Last Admin: 06/19/17 09:01 Dose: 40 mg Gabapentin (Neurontin) 300 mg PO TID [facility] Last Admin: 06/19/17 12:25 Dose: 300 mg Glucagon (Glucagen Diagnostic Kit) 0 mg IM STAT PRN; Protocol PRN Reason: Hypoglycemia Protocol HCTZ/Losartan Potassium (Hyzaar 12.5 Mg-50 Mg) 1 tab PO DAILY [facility] Last Admin: 06/19/17 09:01 Dose: 1 tab Insulin Human Regular (Humulin R) 0 units SC ACCU-CHECK [facility] PRN Reason: Protocol Last Admin: 06/19/17 12:24 Dose: 2 units Ketorolac Tromethamine (Toradol) 30 mg IVP Q6 PRN PRN Reason: Pain, severe (8-10) Last Admin: 06/19/17 13:15 Dose: 30 mg Pantoprazole Sodium (Protonix Ec Tab) 40 mg PO DAILY [facility] Last Admin: 06/19/17 09:01 Dose: 40 mg Sertraline HCl (Zoloft) 50 mg PO DAILY [facility] Last Admin: 06/19/17 09:01 Dose: 50 mg Trazodone HCl (Desyrel) 100 mg PO HS [facility] Last Admin: 06/18/17 23:35 Dose: 100 mg Results - Vital Signs Recent Vital Signs: Last Vital Signs Temp 98.3 F 06/19/17 12:03 Pulse 62 06/19/17 12:03 Resp 18 06/19/17 12:03 BP 131/89 06/19/17 12:03 Pulse Ox 99 06/19/17 12:03 - Labs Result Diagrams: 06/19/17 05:00 06/19/17 05:00 Labs: Laboratory Results - last 24 hr 06/18/17 06/18/17 06/18/17 20:01 20:01 22:38 WBC RBC Hgb Hct MCV MCH MCHC RDW Plt Count Sodium Potassium Chloride Carbon Dioxide Anion Gap BUN Creatinine Est GFR ( Amer) Est GFR (Non-Af Amer) POC Glucose (mg/dL) 69 69 65 Random Glucose Calcium Total Bilirubin AST ALT Alkaline Phosphatase Total Protein Albumin Globulin Albumin/Globulin Ratio Salicylates Urine Opiates Screen Urine Methadone Screen Acetaminophen Ur Barbiturates Screen Ur Phencyclidine Scrn Ur Amphetamines Screen U Benzodiazepines Scrn U Oth Cocaine Metabols U Cannabinoids Screen 06/18/17 06/18/17 06/19/17 23:39 23:40 00:37 WBC RBC Hgb Hct MCV MCH MCHC RDW Plt Count Sodium Potassium Chloride Carbon Dioxide Anion Gap BUN Creatinine Est GFR ( Amer) Est GFR (Non-Af Amer) POC Glucose (mg/dL) 38 L* 99 Random Glucose Calcium Total Bilirubin AST ALT Alkaline Phosphatase Total Protein Albumin Globulin Albumin/Globulin Ratio Salicylates Urine Opiates Screen Negative Urine Methadone Screen Negative Acetaminophen Ur Barbiturates Screen Negative Ur Phencyclidine Scrn Positive H Ur Amphetamines Screen Negative U Benzodiazepines Scrn Negative U Oth Cocaine Metabols Negative U Cannabinoids Screen Negative 06/19/17 06/19/17 06/19/17 05:00 05:00 05:42 WBC 13.1 H RBC 3.93 Hgb 12.3 Hct 37.0 MCV 94.3 MCH 31.3 H MCHC 33.1 RDW 13.9 Plt Count 228 Sodium 141 Potassium 4.4 Chloride 108 H Carbon Dioxide 27 Anion Gap 10 BUN 8 Creatinine 0.7 Est GFR ( Amer) > 60 Est GFR (Non-Af Amer) > 60 POC Glucose (mg/dL) 238 H Random Glucose 223 H Calcium 9.0 Total Bilirubin 0.2 AST 24 ALT 33 Alkaline Phosphatase 88 Total Protein 6.0 L Albumin 3.4 L D Globulin 2.6 Albumin/Globulin Ratio 1.3 Salicylates Urine Opiates Screen Urine Methadone Screen Acetaminophen Ur Barbiturates Screen Ur Phencyclidine Scrn Ur Amphetamines Screen U Benzodiazepines Scrn U Oth Cocaine Metabols U Cannabinoids Screen 06/19/17 07:29 WBC RBC Hgb Hct MCV MCH MCHC RDW Plt Count Sodium Potassium Chloride Carbon Dioxide Anion Gap BUN Creatinine Est GFR ( Amer) Est GFR (Non-Af Amer) POC Glucose (mg/dL) Random Glucose Calcium Total Bilirubin AST ALT Alkaline Phosphatase Total Protein Albumin Globulin Albumin/Globulin Ratio Salicylates < 1.0 Urine Opiates Screen Urine Methadone Screen Acetaminophen < 10.0 L Ur Barbiturates Screen Ur Phencyclidine Scrn Ur Amphetamines Screen U Benzodiazepines Scrn U Oth Cocaine Metabols U Cannabinoids Screen
[2017-06-19 23:50] VITALS: RESP 18
--- NOTE | 2017-06-20 08:01 | CP.PCM.PN ---
Subjective - Date & Time of Evaluation Date of Evaluation: 06/20/17 Time of Evaluation: 07:59 - Subjective Subjective: pt seen and examined at bedside with attending. No acute events overnight. Currently on 1:1. No new complaints. Objective - Vital Signs/Intake and Output Vital Signs (last 24 hours): Temp Pulse Resp BP Pulse Ox 97.8 F 69 18 100/63 97 06/20/17 04:59 06/20/17 04:59 06/20/17 04:59 06/20/17 04:59 06/20/17 04:59 - Medications Medications: Current Medications Acetaminophen (Tylenol 325mg Tab) 650 mg PO Q6 PRN PRN Reason: Pain, Mild (1-3) Last Admin: 06/19/17 20:58 Dose: 650 mg Dextrose (Dextrose 50% Inj) 0 ml IV STAT PRN; Protocol PRN Reason: Hyglycemia Protocol Dextrose (Dextrose 50% Inj) 50 ml IVP ONCE PRN PRN Reason: Hypoglycemia Dextrose (Glutose 15) 0 gm PO ONCE PRN; Protocol PRN Reason: Hypoglycemia Protocol Docusate Sodium (Colace) 100 mg PO BID [facility] Last Admin: 06/19/17 16:44 Dose: Not Given Enoxaparin Sodium (Lovenox) 40 mg SC DAILY [facility] PRN Reason: Protocol Last Admin: 06/19/17 09:01 Dose: 40 mg Gabapentin (Neurontin) 300 mg PO TID [facility] Last Admin: 06/19/17 16:44 Dose: 300 mg Glucagon (Glucagen Diagnostic Kit) 0 mg IM STAT PRN; Protocol PRN Reason: Hypoglycemia Protocol HCTZ/Losartan Potassium (Hyzaar 12.5 Mg-50 Mg) 1 tab PO DAILY [facility] Last Admin: 06/19/17 09:01 Dose: 1 tab Insulin Human Regular (Humulin R) 0 units SC ACCU-CHECK [facility] PRN Reason: Protocol Last Admin: 06/19/17 22:00 Dose: Not Given Ketorolac Tromethamine (Toradol) 30 mg IVP Q6 PRN PRN Reason: Pain, severe (8-10) Last Admin: 06/19/17 13:15 Dose: 30 mg Pantoprazole Sodium (Protonix Ec Tab) 40 mg PO DAILY [facility] Last Admin: 06/19/17 09:01 Dose: 40 mg Sertraline HCl (Zoloft) 50 mg PO DAILY [facility] Last Admin: 06/19/17 09:01 Dose: 50 mg Trazodone HCl (Desyrel) 100 mg PO [facility] Last Admin: 06/19/17 21:57 Dose: 100 mg - Constitutional Appears: Non-toxic, No Acute Distress - Respiratory Exam Respiratory Exam: Clear to Ausculation Bilateral, NORMAL BREATHING PATTERN - Cardiovascular Exam Cardiovascular Exam: REGULAR RHYTHM - GI/Abdominal Exam GI & Abdominal Exam: Soft, Normal Bowel Sounds - Neurological Exam Neurological Exam: Alert, Awake, Oriented x3 Assessment and Plan (1) Insulin overdose Assessment & Plan: pt sugars have stabilized labs wnl pt is medically cleared for transfer to psych Status: Resolved (2) Suicide attempt Assessment & Plan: transfer to psych for further evaluation Status: Acute
[2017-06-20 08:18] VITALS: TEMP 98
[2017-06-20] MEDS: Pantoprazole 40 mg EC Tab PO SCH (09:46)
[2017-06-20] MEDS: HCTZ/Losartan 12.5/50 Tab PO SCH (09:46)
[2017-06-20] MEDS: Enoxaparin 40 mg Syringe SC SCH (09:46)
[2017-06-20] MEDS: Insulin Regular 100 units/ml SC SCH ×2 (09:47→12:46)
--- NOTE | 2017-06-20 11:09 | CP.PCM.CON ---
History of Present Illness - History of Present Illness History of Present Illness: 31 yo woman admitted for suicidal attempt, history of PCP abuse, is referred for pain management. Chart reviewed/history taken. Patient is open about PCP abuse and history of suicidal attempts. She does have chronic pain and had been through preliminary management, including MRI's of thoracic and lumbar spines and physical therapy. She is attempting to see Dr. Smith at the pain management clinic and in the process of setting up an appointment. Her usual pain involves her right shoulder, cervical/thoracic/ lumbar spines, and left knee. Patient has a long list of allergies, mostly to psych meds. In the past, she had responded favorably to Ibuprofen and Baclofen. She's currently on Neurontin , which helps with her paresthesia. Past Patient History - Infectious Disease Hx of Infectious Diseases: None - Tetanus Immunizations Tetanus Immunization: Unknown - Past Medical History & Family History Past Medical History?: Yes - Past Social History Smoking Status: Light Smoker < 10 Cigarettes Daily - CARDIAC Hx Cardiac Disorders: Yes (HTN) - PULMONARY Hx Tuberculosis: No - NEUROLOGICAL Hx Seizures: No - HEENT Hx HEENT Problems: Yes (wears glasses) - RENAL Hx Chronic Kidney Disease: Yes (kidney stones) - ENDOCRINE/METABOLIC Hx Endocrine Disorders: Yes (DM) - HEMATOLOGICAL/ONCOLOGICAL Hx Human Immunodeficiency Virus (HIV): No - INTEGUMENTARY Hx Dermatological Problems: No - MUSCULOSKELETAL/RHEUMATOLOGICAL Hx Falls: No - GASTROINTESTINAL Hx Gastritis: Yes Hx Pancreatitis: Yes - GENITOURINARY/GYNECOLOGICAL Hx Sexually Transmitted Disorders: No - PSYCHIATRIC Hx Substance Use: No - SURGICAL HISTORY Hx Surgeries: Yes Hx Section: Yes (3 (2 ABORTIONS ONE )) Hx Dilation and Curettage: Yes - ANESTHESIA Hx Anesthesia: Yes Hx Anesthesia Reactions: No Hx Malignant Hyperthermia: No Meds Allergies/Adverse Reactions: Allergies Allergy/AdvReac Type Severity Reaction Status Date / Time aripiprazole [From Abilify] Allergy ANAPHYLAXIS Verified 06/05/17 06:03 bupropion [From Wellbutrin] Allergy ANAPHYLAXIS Verified 06/05/17 06:03 escitalopram [From Lexapro] Allergy ANAPHYLAXIS Verified 06/05/17 06:03 lurasidone [From Latuda] Allergy ANAPHYLAXIS Verified 06/05/17 06:03 quetiapine [From Seroquel] Allergy ANAPHYLAXIS Verified 06/05/17 06:03 topiramate [From Topamax] Allergy ANAPHYLAXIS Verified 06/05/17 06:03 ciprofloxacin [From Cipro] AdvReac RASH Verified 06/05/17 06:03 haloperidol [From Haldol] AdvReac FATIGUE Verified 04/28/17 17:30 haloperidol lactate AdvReac FATIGUE Verified 04/28/17 17:30 [From Haldol] ziprasidone HCl [From Geodon] AdvReac FATIGUE Verified 04/28/17 17:30 ziprasidone mesylate AdvReac FATIGUE Verified 04/28/17 17:30 [From Geodon] - Medications Medications: Current Medications Acetaminophen (Tylenol 325mg Tab) 650 mg PO Q6 PRN PRN Reason: Pain, Mild (1-3) Last Admin: 06/19/17 20:58 Dose: 650 mg Dextrose (Dextrose 50% Inj) 0 ml IV STAT PRN; Protocol PRN Reason: Hyglycemia Protocol Dextrose (Dextrose 50% Inj) 50 ml IVP ONCE PRN PRN Reason: Hypoglycemia Dextrose (Glutose 15) 0 gm PO ONCE PRN; Protocol PRN Reason: Hypoglycemia Protocol Docusate Sodium (Colace) 100 mg PO BID [facility] Last Admin: 06/20/17 09:54 Dose: Not Given Enoxaparin Sodium (Lovenox) 40 mg SC DAILY [facility] PRN Reason: Protocol Last Admin: 06/20/17 09:46 Dose: 40 mg Gabapentin (Neurontin) 300 mg PO TID [facility] Last Admin: 06/20/17 09:46 Dose: 300 mg Glucagon (Glucagen Diagnostic Kit) 0 mg IM STAT PRN; Protocol PRN Reason: Hypoglycemia Protocol HCTZ/Losartan Potassium (Hyzaar 12.5 Mg-50 Mg) 1 tab PO DAILY [facility] Last Admin: 06/20/17 09:46 Dose: 1 tab Insulin Human Regular (Humulin R) 0 units SC ACCU-CHECK [facility] PRN Reason: Protocol Last Admin: 06/20/17 09:47 Dose: 2 units Ketorolac Tromethamine (Toradol) 30 mg IVP Q6 PRN PRN Reason: Pain, severe (8-10) Last Admin: 06/19/17 13:15 Dose: 30 mg Pantoprazole Sodium (Protonix Ec Tab) 40 mg PO DAILY [facility] Last Admin: 06/20/17 09:46 Dose: 40 mg Sertraline HCl (Zoloft) 50 mg PO DAILY [facility] Last Admin: 06/20/17 09:47 Dose: 50 mg Trazodone HCl (Desyrel) 100 mg PO HS [facility] Last Admin: 06/19/17 21:57 Dose: 100 mg Physical Exam - Respiratory Exam Respiratory Exam: NORMAL BREATHING PATTERN - Cardiovascular Exam Cardiovascular Exam: REGULAR RHYTHM - GI/Abdominal Exam GI & Abdominal Exam: Normal Bowel Sounds Results - Vital Signs Recent Vital Signs: Last Vital Signs Temp 98 F 06/20/17 08:00 Pulse 68 06/20/17 08:00 Resp 18 06/20/17 08:00 BP 129/82 06/20/17 08:00 Pulse Ox 96 06/20/17 08:00 - Labs Result Diagrams: 06/19/17 05:00 06/19/17 05:00 Assessment & Plan (1) Suicidal ideation Assessment and Plan: 31 yo woman w/ depression and chronic pain. - increase Neurontin to 400mg q8h - start Ibuprofen 800mg q8h PRN, d/c Toradol - start Baclofen 10mg, q8h PRN - will speak to pain clinic staff about taking her as an outpatient under Dr. Smith - please re-consult if necessary - f/u psych rec's Status: Acute
[2017-06-20 12:45] VITALS: BP 130/83; PULSE 72; O2SAT 95
--- NOTE | 2017-06-20 13:40 | CP.PCM.PN ---
Subjective - Date & Time of Evaluation Date of Evaluation: 06/20/17 Time of Evaluation: 13:37 - Subjective Subjective: psychiatry follow up s: met with pt. discussed with leanna altamirano, rn nurse shared services manager of [facility] [place] who also has talked to pt. pt is now denying any suicidal thoughts and is future oriented and wants to follow up with her mental health appointment tomorrow. she is not endorsing any suicidal thoughts. she is goal directed. she is future oriented. o: mse: alert, oriented x 3. affect is bright. mood is "good" speech is appropriate. thoughts are logical. pt is denying any suicidal or homicidal thoughts currently. she denies any a/v hallucinations. fair i/j. assessment: pcp dependence mood disorder unspecified recommendation: can discharge home and f/u with her already scheduled appointments can discontinue 1:1 supervision continue home medications Objective - Vital Signs/Intake and Output Vital Signs (last 24 hours): Temp Pulse Resp BP Pulse Ox 98 F 72 18 130/83 95 06/20/17 12:00 06/20/17 12:00 06/20/17 12:00 06/20/17 12:00 06/20/17 12:00 - Medications Medications: Current Medications Acetaminophen (Tylenol 325mg Tab) 650 mg PO Q6 PRN PRN Reason: Pain, Mild (1-3) Last Admin: 06/19/17 20:58 Dose: 650 mg Baclofen (Lioresal) 10 mg PO TID [facility] Last Admin: 06/20/17 12:46 Dose: 10 mg Dextrose (Dextrose 50% Inj) 0 ml IV STAT PRN; Protocol PRN Reason: Hyglycemia Protocol Dextrose (Dextrose 50% Inj) 50 ml IVP ONCE PRN PRN Reason: Hypoglycemia Dextrose (Glutose 15) 0 gm PO ONCE PRN; Protocol PRN Reason: Hypoglycemia Protocol Docusate Sodium (Colace) 100 mg PO BID [facility] Last Admin: 06/20/17 09:54 Dose: Not Given Enoxaparin Sodium (Lovenox) 40 mg SC DAILY [facility] PRN Reason: Protocol Last Admin: 06/20/17 09:46 Dose: 40 mg Gabapentin (Neurontin) 400 mg PO TID [facility] Last Admin: 06/20/17 12:47 Dose: 400 mg Glucagon (Glucagen Diagnostic Kit) 0 mg IM STAT PRN; Protocol PRN Reason: Hypoglycemia Protocol HCTZ/Losartan Potassium (Hyzaar 12.5 Mg-50 Mg) 1 tab PO DAILY [facility] Last Admin: 06/20/17 09:46 Dose: 1 tab Ibuprofen (Motrin Tab) 800 mg PO Q8 PRN PRN Reason: Pain, severe (8-10) Insulin Human Regular (Humulin R) 0 units SC ACCU-CHECK [facility] PRN Reason: Protocol Last Admin: 06/20/17 12:46 Dose: 2 units Pantoprazole Sodium (Protonix Ec Tab) 40 mg PO DAILY [facility] Last Admin: 06/20/17 09:46 Dose: 40 mg Sertraline HCl (Zoloft) 50 mg PO DAILY [facility] Last Admin: 06/20/17 09:47 Dose: 50 mg Trazodone HCl (Desyrel) 100 mg PO HS [facility] Last Admin: 06/19/17 21:57 Dose: 100 mg
== END 2017-06-20 15:21 | disposition home or self-care (01) | DRG 449 ==
LOC: H.ER 16:37 → H.ERHOLD 18:55 → H.TEL 21:51 → OBSVTOIN 06-19 19:55
PROVIDERS: ADMIT Internal Medicine; ATTEND Internal Medicine
DX: T38.3X2A Poisoning by insulin and oral hypoglycemic [antidiabetic] drugs, intentional self-harm, initial encounter (principal); E11.649 Type 2 diabetes mellitus with hypoglycemia without coma; E87.6 Hypokalemia; F16.20 Hallucinogen dependence, uncomplicated; Z79.4 Long term (current) use of insulin; F41.9 Anxiety disorder, unspecified; G89.29 Other chronic pain; I10 Essential (primary) hypertension; K21.9 Gastro-esophageal reflux disease without esophagitis; K29.70 Gastritis, unspecified, without bleeding; F17.210 Nicotine dependence, cigarettes, uncomplicated; F39 Unspecified mood [affective] disorder

== ENCOUNTER 2017-07-16 11:40 | Emergency (ER) | payer MEDICAID ==
[2017-07-16 11:47] VITALS: BMI 32.5
[2017-07-16 11:48] VITALS: BP 121/68; PULSE 91; RESP 18; TEMP 98.4; O2SAT 96
--- NOTE | 2017-07-16 12:23 | ED PDOC ---
HPI: CCC, URI, Sore Throat Time Seen by Provider: 07/16/17 12:10 Chief Complaint (Nursing): Cough, Cold, Congestion Chief Complaint (Provider): Cough, cold, congestion History Per: Patient History/Exam Limitations: no limitations Have you had recent travel within the past 21 days to any of the following countries: [place], [place], [place] or [place]?: No Onset/Duration Of Symptoms: Days Current Symptoms Are (Timing): Still Present Location Of Pain: Throat Associated Symptoms: Sore Throat, Cough, Sputum, Vomiting Additional History Per: Patient Additional Complaint(s): The patient is a 31yo female, past medical history of DM, hypertension, chronic kidney disease, presents to the ED for evaluation of persistent cough, cold and congestion with associated intermittent episodes of nausea and vomiting. Patient also reports mild abdominal discomfort, described as cramping, but denies any abdominal pain. Patient reports she saw her PCP Dr. Roldan Joseph when her symptoms started and was diagnosed with a URI; patient states she was placed on ampicillin, which she has been taking as prescribed. Patient reports she went back to her pcp last week for a follow up and was informed " the infection cleared up"; states she told her pcpc about the continued cough, congestion and vomiting and was informed to present to the ED if symptoms persisted. Patient also states she feels generalized weakness and dehydration. She denies any other medical complaints. PCP: Dr. Roldan Joseph Past Medical History Reviewed: Historical Data, Nursing Documentation, Vital Signs Vital Signs: Last Vital Signs Temp 98.4 F 07/16/17 11:47 Pulse 91 H 07/16/17 11:47 Resp 18 07/16/17 11:47 BP 121/68 07/16/17 11:47 Pulse Ox 96 07/16/17 12:42 - Medical History PMH: Anxiety (drug induced), Back Problems, Bipolar Disorder, Depression, Diabetes, Gastritis, Gastrointestinal Ulcer, Hiatal Hernia, HTN, Kidney Stones ( history), Pancreatitis, Chronic Kidney Disease (kidney stones) Denies: Hepatitis, HIV, Seizures, Sexually Transmitted Disease - Surgical History Surgical History: - Family History Family History: States: Unknown Family Hx - Immunization History Hx Tetanus Toxoid Vaccination: No Hx Influenza Vaccination: No Hx Pneumococcal Vaccination: No - Home Medications Home Medications: Ambulatory Orders Medication Instructions Recorded Sertraline [Zoloft] 50 mg PO DAILY #14 tab 05/05/17 Docusate Sodium [Colace] 100 mg PO BID #20 capsule 06/18/17 HCTZ/Losartan Potassium [Hyzaar 1 tab PO DAILY 06/18/17 12.5 mg-50 mg] Pantoprazole Sodium [Protonix] 40 mg PO DAILY 06/18/17 traZODone [Desyrel] 100 mg PO HS 06/18/17 Baclofen [Lioresal] 10 mg PO TID tab 06/20/17 Gabapentin [Neurontin] 400 mg PO TID cap 06/20/17 Ibuprofen [Motrin Tab] 800 mg PO Q8 PRN tab 06/20/17 Mupirocin 2% Ointment [Bactroban 0.5 gm TP BID #1 tube 07/16/17 Ointment] Ondansetron ODT [Zofran ODT] 4 mg PO Q8 PRN #5 odt 07/16/17 Ranitidine HCl [Zantac 75] 75 mg PO BID #10 tablet 07/16/17 - Allergies Allergies/Adverse Reactions: Allergies Allergy/AdvReac Type Severity Reaction Status Date / Time aripiprazole [From Abilify] Allergy ANAPHYLAXIS Verified 06/05/17 06:03 bupropion [From Wellbutrin] Allergy ANAPHYLAXIS Verified 06/05/17 06:03 escitalopram [From Lexapro] Allergy ANAPHYLAXIS Verified 06/05/17 06:03 lurasidone [From Latuda] Allergy ANAPHYLAXIS Verified 06/05/17 06:03 quetiapine [From Seroquel] Allergy ANAPHYLAXIS Verified 06/05/17 06:03 topiramate [From Topamax] Allergy ANAPHYLAXIS Verified 06/05/17 06:03 ciprofloxacin [From Cipro] AdvReac RASH Verified 06/05/17 06:03 haloperidol [From Haldol] AdvReac FATIGUE Verified 04/28/17 17:30 haloperidol lactate AdvReac FATIGUE Verified 04/28/17 17:30 [From Haldol] ziprasidone HCl [From Geodon] AdvReac FATIGUE Verified 04/28/17 17:30 ziprasidone mesylate AdvReac FATIGUE Verified 04/28/17 17:30 [From Geodon] Review of Systems ROS Statement: Except As Marked, All Systems Reviewed And Found Negative Constitutional: Positive for: Weakness, Other (dehydrated) ENT: Positive for: Throat Pain Respiratory: Positive for: Cough, Sputum Gastrointestinal: Positive for: Nausea, Vomiting. Negative for: Abdominal Pain (more like cramping) Physical Exam - Reviewed Nursing Documentation Reviewed: Yes Vital Signs Reviewed: Yes - Physical Exam Appears: Positive for: Well, Non-toxic, No Acute Distress Head Exam: Positive for: ATRAUMATIC, NORMAL INSPECTION, NORMOCEPHALIC Skin: Positive for: Normal Color, Warm, DRY Eye Exam: Positive for: EOMI, Normal appearance, PERRL ENT: Positive for: Normal ENT Inspection Neck: Positive for: Normal, Painless ROM, Supple Cardiovascular/Chest: Positive for: Regular Rate, Rhythm. Negative for: Murmur Respiratory: Positive for: Normal Breath Sounds. Negative for: Wheezing, Respiratory Distress Gastrointestinal/Abdominal: Positive for: Normal Exam, Soft. Negative for: Tenderness Extremity: Positive for: Normal ROM. Negative for: Deformity, Swelling Neurologic/Psych: Positive for: Alert, Oriented - ECG O2 Sat by Pulse Oximetry: 96 Medical Decision Making Medical Decision Making: Time: 1220 Impression: Persistent cough, cold, congestion in setting of known antibiotics use Plan: -- Prior charts reviewed and patient was last seen in this facility on 06/18 and was admitted for exogenous hyperinsulemia, suicidal ideation, hypoglycemia s /p taking 200 units of insulin while in the ED. -- Accucheck -- UDip Reassess Time: 1240 Accucheck: 157 UDip results indicate: -- SG 1.025 -- Negative for ketones, glucose, leukocytes or nitrates. Zofran 4mg PO ordered Patient tolerating po fluids in ED. Scribe Attestation: Documented by Mariah Aguirre acting as a scribe for YUDY Billings Provider Attestation: All medical record entries made by the Scribe were at my direction and personally dictated by me. I have reviewed the chart and agree that the record accurately reflects my personal performance of the history, physical exam, medical decision making, and the department course for this patient. I have also personally directed, reviewed, and agree with the discharge instructions and disposition. Disposition - Clinical Impression Clinical Impression: Gastritis - Patient ED Disposition Is Patient to be Admitted: No - Disposition Disposition: Routine/Home Disposition Time: 13:02 Condition: FAIR Prescriptions: Mupirocin 2% Ointment [Bactroban Ointment] 0.5 gm TP BID #1 tube Ondansetron ODT [Zofran ODT] 4 mg PO Q8 PRN #5 odt PRN Reason: Nausea/Vomiting Ranitidine HCl [Zantac 75] 75 mg PO BID #10 tablet Instructions: Gastritis (DC), Viral Syndrome (ED) Forms: [employer] (Faroese)
== END 2017-07-16 13:26 | disposition home or self-care (01) ==
LOC: H.ER 11:40
DX: K29.70 Gastritis, unspecified, without bleeding (principal); B34.9 Viral infection, unspecified

== ENCOUNTER 2017-08-08 15:59 | Emergency (ER) | payer MEDICAID ==
[2017-08-08 15:59] VITALS: BMI 32.5
[2017-08-08 16:05] VITALS: BP 146/92; PULSE 102; RESP 16; TEMP 98; O2SAT 100
--- NOTE | 2017-08-08 16:46 | ED PDOC ---
Upper Extremity Pain/Injury Time Seen by Provider: 08/08/17 16:34 Chief Complaint (Nursing): Finger,Hand,&Wrist Chief Complaint (Provider): Right hand pain History Per: Patient History/Exam Limitations: no limitations Onset/Duration Of Symptoms: Hrs Current Symptoms Are (Timing): Still Present Additional Complaint(s): Patient is a 32 y/o right hand dominant female presenting to the emergency department for right hand pain and swelling after a window fell onto her hand x1 hour prior to arrival. She reports that the pain has subsided in intensity since onset and notes limited range of motion of her fingers. Denies other injuries or complaints. No numbness or tingling to affected area. Patient did not sustain head injury depsite chief complaint stating otherwise. PCP: none provided. Past Medical History Reviewed: Historical Data, Nursing Documentation, Vital Signs Vital Signs: Last Vital Signs Temp 98.0 F 08/08/17 16:02 Pulse 102 H 08/08/17 16:02 Resp 16 08/08/17 16:02 BP 146/92 H 08/08/17 16:02 Pulse Ox 100 08/08/17 16:02 - Medical History PMH: Anxiety (drug induced), Back Problems, Bipolar Disorder, Depression, Diabetes, Gastritis, HTN, Kidney Stones (history) - Surgical History Surgical History: - Family History Family History: States: No Known Family Hx - Living Arrangements Living Arrangements: With Family - Social History Current smoker - smoking cessation education provided: Yes Alcohol: None Drugs: Other (h/o PCP abuse, clean for several months) - Home Medications Home Medications: Ambulatory Orders Medication Instructions Recorded Sertraline [Zoloft] 50 mg PO DAILY #14 tab 05/05/17 Docusate Sodium [Colace] 100 mg PO BID #20 capsule 06/18/17 HCTZ/Losartan Potassium [Hyzaar 1 tab PO DAILY 06/18/17 12.5 mg-50 mg] Pantoprazole Sodium [Protonix] 40 mg PO DAILY 06/18/17 traZODone [Desyrel] 100 mg PO HS 06/18/17 Baclofen [Lioresal] 10 mg PO TID tab 06/20/17 Gabapentin [Neurontin] 400 mg PO TID cap 06/20/17 Ibuprofen [Motrin Tab] 800 mg PO Q8 PRN tab 06/20/17 Mupirocin 2% Ointment [Bactroban 0.5 gm TP BID #1 tube 07/16/17 Ointment] Ondansetron ODT [Zofran ODT] 4 mg PO Q8 PRN #5 odt 07/16/17 Ranitidine HCl [Zantac 75] 75 mg PO BID #10 tablet 07/16/17 Unobtainable 07/18/17 - Allergies Allergies/Adverse Reactions: Allergies Allergy/AdvReac Type Severity Reaction Status Date / Time aripiprazole [From Abilify] Allergy ANAPHYLAXIS Verified 08/08/17 16:02 bupropion [From Wellbutrin] Allergy ANAPHYLAXIS Verified 08/08/17 16:02 escitalopram [From Lexapro] Allergy ANAPHYLAXIS Verified 08/08/17 16:02 lurasidone [From Latuda] Allergy ANAPHYLAXIS Verified 08/08/17 16:02 quetiapine [From Seroquel] Allergy ANAPHYLAXIS Verified 08/08/17 16:02 risperidone [From Risperdal] Allergy ANAPHYLAXIS Verified 08/08/17 16:02 topiramate [From Topamax] Allergy ANAPHYLAXIS Verified 08/08/17 16:02 ciprofloxacin [From Cipro] AdvReac RASH Verified 08/08/17 16:02 haloperidol [From Haldol] AdvReac FATIGUE Verified 08/08/17 16:02 haloperidol lactate AdvReac FATIGUE Verified 08/08/17 16:02 [From Haldol] ziprasidone HCl [From Geodon] AdvReac FATIGUE Verified 08/08/17 16:02 ziprasidone mesylate AdvReac FATIGUE Verified 08/08/17 16:02 [From Geodon] Review of Systems ROS Statement: Except As Marked, All Systems Reviewed And Found Negative Musculoskeletal: Positive for: Hand Pain (with bruising and mild swelling on back of right hand. limited range of motion of fingers. ) Physical Exam - Reviewed Nursing Documentation Reviewed: Yes Vital Signs Reviewed: Yes - Physical Exam Appears: Positive for: Non-toxic, No Acute Distress Head Exam: Positive for: ATRAUMATIC Skin: Positive for: Normal Color, Warm, Dry. Negative for: Rash Neck: Positive for: Painless ROM Extremity: Positive for: Swelling (moderate swelling on dorsal aspect of right hand with limited ROM of fingers, full rom of right wrist). Negative for: Tenderness ( snuff box tenderness) Neurologic/Psych: Positive for: Alert, Oriented (x3) - ECG O2 Sat by Pulse Oximetry: 100 (RA) Pulse Ox Interpretation: Normal - Other Rad Right hand x-ray X-Ray: Interpreted by Me, Viewed By Me X-Ray Interpretation: STS, no fx, no dis Medical Decision Making Medical Decision Making: Time: 16:44 Initial impression: Right hand injury Initial plan: Tylenol 325 mg tab Motrin 600 mg PO Right hand X-ray Reevaluation 16:58 Right hand x-ray viewed by me. No acute findings. Splint applied, advised NSAID' s for pain, ortho referral given. Scribe Attestation: Documented by Violet Harkins, acting as a scribe for YUDY Patterson. Provider Scribe Attestation: All medical record entries made by the Scribe were at my direction and personally dictated by me. I have reviewed the chart and agree that the record accurately reflects my personal performance of the history, physical exam, medical decision making, and the department course for this patient. I have also personally directed, reviewed, and agree with the discharge instructions and disposition. Procedures - Splinting Location: right hand Pre-Made Type: metal (metallic pre-made metacarpal splint applied, secure with kira wrap) Pre-Proc Neuro Vasc Exam: normal Post-Proc Neuro Vasc Exam: normal Disposition - Clinical Impression Clinical Impression: Hand contusion - Patient ED Disposition Is Patient to be Admitted: No Counseled Patient/Family Regarding: Studies Performed, Diagnosis, Need For Followup - Disposition Referrals: Skip Price MD [Staff Provider] - Disposition: Routine/Home Disposition Time: 17:05 Condition: STABLE Additional Instructions: Ice, rest and elevate affected area. Take [id number] Motrin or Tylenol for pain as needed. Follow up with primary doctor or orthopedist for persistent symptoms. Instructions: Hand Sprain (ED), Contusion in Adults (ED) Forms: [employer] (Faroese), [facility] ED School/Work Excuse
--- NOTE | 2017-08-08 17:27 | RAD ---
PROCEDURE: Right Hand Radiographs. HISTORY: Trauma. Anatomic area of interest: Lateral aspect of the hand at the level of the 5th metacarpal phalangeal joint region. COMPARISON: None. FINDINGS: BONES: Normal. No fracture. JOINTS: Normal. No osteoarthritic changes. SOFT TISSUES: Normal. OTHER FINDINGS: None. IMPRESSION: No significant or acute findings to account for/ related to the clinical presentation. Concordant results with the preliminary interpretation rendered by the emergency department physician procedure.
== END 2017-08-08 18:04 | disposition home or self-care (01) ==
LOC: H.ER 15:59
DX: S60.229A Contusion of unspecified hand, initial encounter (principal); E11.9 Type 2 diabetes mellitus without complications; I10 Essential (primary) hypertension; Z86.59 Personal history of other mental and behavioral disorders; Z87.442 Personal history of urinary calculi

== ENCOUNTER 2017-08-14 16:03 | Emergency (ER) | payer MEDICAID ==
[2017-08-14 16:04] VITALS: BMI 32.5
[2017-08-14 16:15] VITALS: BP 137/96; PULSE 80; RESP 16; TEMP 98.7; O2SAT 100
--- NOTE | 2017-08-14 17:00 | RAD ---
PROCEDURE: Right Ankle Radiographs. HISTORY: twisted ankle, lateral pain COMPARISON: None FINDINGS: BONES: Normal. No fracture. JOINTS: Normal. No osteoarthritis. Ankle mortise maintained. Talar dome intact SOFT TISSUES: Normal. OTHER FINDINGS: None. IMPRESSION: No acute findings related to/accounting for the clinical presentation.
--- NOTE | 2017-08-14 17:03 | ED PDOC ---
Lower Extremity Pain/Injury Time Seen by Provider: 08/14/17 16:22 Chief Complaint (Nursing): Lower Extremity Problem/Injury Chief Complaint (Provider): Right ankle pain History Per: Patient History/Exam Limitations: no limitations Onset/Duration Of Symptoms: Mins Current Symptoms Are (Timing): Still Present Additional History Per: Patient Additional Complaint(s): 32yo female, presents to the ED for evaluation of right ankle and foot pain after twisting it prior to arrival. Patient states she missed a step while walking down the stairs and twisted her right ankle. She denies any numbness, tingling. She offers no additional medical complaints. Past Medical History Reviewed: Historical Data, Nursing Documentation, Vital Signs Vital Signs: Last Vital Signs Temp 98.7 F 08/14/17 16:12 Pulse 80 08/14/17 16:12 Resp 16 08/14/17 16:12 BP 137/96 H 08/14/17 16:12 Pulse Ox 100 08/14/17 16:12 - Medical History PMH: Anxiety (drug induced), Back Problems, Bipolar Disorder, Depression, Diabetes, Gastritis, Gastrointestinal Ulcer, Hiatal Hernia, HTN, Kidney Stones ( history), Pancreatitis, Chronic Kidney Disease (kidney stones) Denies: Hepatitis, HIV, Seizures, Sexually Transmitted Disease - Surgical History Surgical History: - Family History Family History: States: Unknown Family Hx - Immunization History Hx Tetanus Toxoid Vaccination: No Hx Influenza Vaccination: No Hx Pneumococcal Vaccination: No - Home Medications Home Medications: Ambulatory Orders Medication Instructions Recorded Sertraline [Zoloft] 50 mg PO DAILY #14 tab 05/05/17 Docusate Sodium [Colace] 100 mg PO BID #20 capsule 06/18/17 HCTZ/Losartan Potassium [Hyzaar 1 tab PO DAILY 06/18/17 12.5 mg-50 mg] Pantoprazole Sodium [Protonix] 40 mg PO DAILY 06/18/17 traZODone [Desyrel] 100 mg PO HS 06/18/17 Baclofen [Lioresal] 10 mg PO TID tab 06/20/17 Gabapentin [Neurontin] 400 mg PO TID cap 06/20/17 Ibuprofen [Motrin Tab] 800 mg PO Q8 PRN tab 06/20/17 Mupirocin 2% Ointment [Bactroban 0.5 gm TP BID #1 tube 07/16/17 Ointment] Ondansetron ODT [Zofran ODT] 4 mg PO Q8 PRN #5 odt 07/16/17 Ranitidine HCl [Zantac 75] 75 mg PO BID #10 tablet 07/16/17 traMADol [Ultram] 50 mg PO Q6H PRN #5 tab 08/14/17 - Allergies Allergies/Adverse Reactions: Allergies Allergy/AdvReac Type Severity Reaction Status Date / Time aripiprazole [From Abilify] Allergy ANAPHYLAXIS Verified 08/14/17 16:08 bupropion [From Wellbutrin] Allergy ANAPHYLAXIS Verified 08/14/17 16:08 escitalopram [From Lexapro] Allergy ANAPHYLAXIS Verified 08/14/17 16:08 lurasidone [From Latuda] Allergy ANAPHYLAXIS Verified 08/14/17 16:08 quetiapine [From Seroquel] Allergy ANAPHYLAXIS Verified 08/14/17 16:08 risperidone [From Risperdal] Allergy ANAPHYLAXIS Verified 08/14/17 16:08 topiramate [From Topamax] Allergy ANAPHYLAXIS Verified 08/14/17 16:08 ciprofloxacin [From Cipro] AdvReac RASH Verified 08/14/17 16:08 haloperidol [From Haldol] AdvReac FATIGUE Verified 08/14/17 16:08 haloperidol lactate AdvReac FATIGUE Verified 08/14/17 16:08 [From Haldol] ziprasidone HCl [From Geodon] AdvReac FATIGUE Verified 08/14/17 16:08 ziprasidone mesylate AdvReac FATIGUE Verified 08/14/17 16:08 [From Geodon] Review of Systems Musculoskeletal: Positive for: Foot Pain (right) Neurological: Negative for: Weakness, Numbness Physical Exam - Reviewed Nursing Documentation Reviewed: Yes Vital Signs Reviewed: Yes - Physical Exam Appears: Positive for: Non-toxic, No Acute Distress Head Exam: Positive for: ATRAUMATIC, NORMAL INSPECTION, NORMOCEPHALIC Skin: Positive for: Warm Neck: Positive for: Supple Cardiovascular/Chest: Positive for: Regular Rate, Rhythm Respiratory: Negative for: Respiratory Distress Pulses-Dorsalis Pedis (R): 2+ Extremity: Positive for: Tenderness (right lateral inferior malleolus). Negative for: Deformity, Swelling Neurologic/Psych: Positive for: Alert, Oriented. Negative for: Motor/Sensory Deficits - ECG O2 Sat by Pulse Oximetry: 100 (RA) Pulse Ox Interpretation: Normal Medical Decision Making Medical Decision Making: Time: 1630 Impression: Right ankle and foot pain Plan: -- Tramadol 50 mg PO -- XR Right foot Reassess Normal x-ray. Pt reports feeling better on re-evaluation. Scribe Attestation: Documented by Mariah Aguirre acting as a scribe for YUDY Escoto Provider Attestation: All medical record entries made by the Scribe were at my direction and personally dictated by me. I have reviewed the chart and agree that the record accurately reflects my personal performance of the history, physical exam, medical decision making, and the department course for this patient. I have also personally directed, reviewed, and agree with the discharge instructions and disposition. Disposition - Clinical Impression Clinical Impression: Ankle injury - Disposition Referrals: [facility] [Outside] [facility] [Outside] Disposition: Routine/Home Disposition Time: 17:18 Condition: GOOD Prescriptions: traMADol [Ultram] 50 mg PO Q6H PRN #5 tab PRN Reason: Pain Instructions: Ankle Sprain (ED) Forms: [employer] ([place])
== END 2017-08-14 17:50 | disposition home or self-care (01) ==
LOC: H.ER 16:03
DX: S99.911A Unspecified injury of right ankle, initial encounter (principal); X50.9XXA Other and unspecified overexertion or strenuous movements or postures, initial encounter; Y92.89 Other specified places as the place of occurrence of the external cause; E11.22 Type 2 diabetes mellitus with diabetic chronic kidney disease; F31.9 Bipolar disorder, unspecified; F41.9 Anxiety disorder, unspecified; I12.9 Hypertensive chronic kidney disease with stage 1 through stage 4 chronic kidney disease, or unspecified chronic kidney disease; K85.90 Acute pancreatitis without necrosis or infection, unspecified; Z87.442 Personal history of urinary calculi

== ENCOUNTER 2018-01-22 08:29 | Emergency (ER) | payer MEDICAID, OTHER ==
[2018-01-22 08:30] VITALS: BMI 33.2
[2018-01-22 08:55] VITALS: BP 151/87; PULSE 93; RESP 20; TEMP 98.4; O2SAT 100
[2018-01-22] MEDS ORDERED: Sodium Chloride 0.9% 1,000 ML IV STA (09:21)
[2018-01-22 10:25] LABS: ALB/GLOB RATIO 1.3 (1.0-2.1); ALBUMIN 4.6 g/dL (3.5-5.0); ALT/SGPT 36 U/L (9-52); AST/SGOT 26 U/L (14-36); BLOOD UREA NITROGEN 8 mg/dl (7-17); CALCIUM 9.9 mg/dL (8.4-10.2); GFR AFRICAN-AMERICAN > 60; GFR NON-AFRICAN AMERICAN > 60
[2018-01-22 10:28] LABS: RENAL EPITHELIAL < 1 /hpf (0-3); SQUAMOUS EPITHIAL 7 /hpf (0-5); URINE BACTERIA RARE (<OCC); URINE BILIRUBIN NEGATIVE (NEGATIVE); URINE BLOOD LARGE (NEGATIVE); URINE CLARITY SLIGHTY-CLOUDY (Clear); URINE COLOR YELLOW (YELLOW); URINE GLUCOSE (UA) 50 mg/dL (Normal); URINE LEUKOCYTE ESTERASE NEG Leu/uL (Negative); URINE NITRATE NEGATIVE (NEGATIVE); URINE PROTEIN NEGATIVE (NEGATIVE); URINE UROBILINOGEN 0.2-1.0 mg/dL (0.2-1.0)
[2018-01-22 10:32] LABS: BASO # 0.1 K/uL (0.0-0.2); BASO % 0.5 % (0.0-2.0); EOS # 0.1 K/uL (0.0-0.7); EOS % 0.8 % (0.0-4.0); HEMOGLOBIN 14.3 g/dL (12.0-16.0); LYMPH # 2.2 K/uL (1.0-4.3); LYMPH % 20.9 % (20.0-40.0); MEAN CELL VOLUME 93.6 fl (81.0-99.0); MEAN CORPUSCULAR HEMOGLOBIN 32.6 pg (27.0-31.0); MEAN CORPUSCULAR HGB CONC 34.8 g/dL (33.0-37.0); MEAN PLATELET VOLUME 10.1 fl (7.2-11.7); MONO # 0.5 K/uL (0.0-0.8); MONO % 4.5 % (0.0-10.0); NEUT # 7.8 K/uL (1.8-7.0); NEUT % 73.3 % (50.0-75.0); NRBC % 0.1 % (0.0-0.0); RBC 4.4 Mil/uL (3.80-5.20); RED CELL DISTRIBUTION WIDTH 13.1 % (11.5-14.5); WHITE BLOOD COUNT 10.6 K/uL (4.8-10.8)
--- NOTE | 2018-01-22 10:39 | ED PDOC ---
HPI: Back Time Seen by Provider: 01/22/18 09:01 Chief Complaint (Nursing): Back Pain Chief Complaint (Provider): Left-Sided back Pain History Per: Patient History/Exam Limitations: no limitations Onset/Duration Of Symptoms: Days (x3) Current Symptoms Are (Timing): Still Present Additional Complaint(s): Deborah Hernandez is a 32 year old female that presents to the ED with a chief complaint of left-sided back pain that she has been experiencing for the past three days. Patient reports associated hesitancy, but denies any fever, nausea, vomiting, abdominal pain, dysuria, hematuria, or fever. Past Medical History Reviewed: Historical Data, Nursing Documentation, Vital Signs Vital Signs: Last Vital Signs Temp 98.4 F 01/22/18 08:53 Pulse 93 H 01/22/18 08:53 Resp 20 01/22/18 08:53 BP 151/87 H 01/22/18 08:53 Pulse Ox 100 01/22/18 08:53 - Medical History PMH: Anxiety (drug induced), Back Problems, Bipolar Disorder, Depression, Diabetes, Gastritis, Gastrointestinal Ulcer, Hiatal Hernia, HTN, Kidney Stones ( history), Pancreatitis, Chronic Kidney Disease (kidney stones) Denies: Hepatitis, HIV, Seizures, Sexually Transmitted Disease - Surgical History Surgical History: - Family History Family History: States: Unknown Family Hx - Immunization History Hx Tetanus Toxoid Vaccination: No Hx Influenza Vaccination: No Hx Pneumococcal Vaccination: No - Home Medications Home Medications: Ambulatory Orders Medication Instructions Recorded Micha Venegasikpen U-100 70 units SQ DAILY 09/29/17 Humulin N 09/29/17 Ibuprofen 400 mg PO DAILY PRN 09/29/17 Losartan 100 mg PO DAILY 09/29/17 Omeprazole 40 mg PO PRN PRN 09/29/17 - Allergies Allergies/Adverse Reactions: Allergies Allergy/AdvReac Type Severity Reaction Status Date / Time aripiprazole [From Abilify] Allergy ANAPHYLAXIS Verified 12/03/17 14:09 bupropion [From Wellbutrin] Allergy ANAPHYLAXIS Verified 12/03/17 14:09 escitalopram [From Lexapro] Allergy ANAPHYLAXIS Verified 12/03/17 14:09 lurasidone [From Latuda] Allergy ANAPHYLAXIS Verified 12/03/17 14:09 quetiapine [From Seroquel] Allergy ANAPHYLAXIS Verified 12/03/17 14:09 risperidone [From Risperdal] Allergy ANAPHYLAXIS Verified 12/03/17 14:09 topiramate [From Topamax] Allergy ANAPHYLAXIS Verified 12/03/17 14:09 ciprofloxacin [From Cipro] AdvReac RASH Verified 12/03/17 14:09 haloperidol [From Haldol] AdvReac FATIGUE Verified 12/03/17 14:09 haloperidol lactate AdvReac FATIGUE Verified 12/03/17 14:09 [From Haldol] ziprasidone HCl [From Geodon] AdvReac FATIGUE Verified 12/03/17 14:09 ziprasidone mesylate AdvReac FATIGUE Verified 12/03/17 14:09 [From Geodon] Review of Systems ROS Statement: Except As Marked, All Systems Reviewed And Found Negative Constitutional: Negative for: Fever Gastrointestinal: Negative for: Nausea, Vomiting, Abdominal Pain Genitourinary Female: Positive for: Other (hesitancy). Negative for: Dysuria, Hematuria Musculoskeletal: Positive for: Back Pain (left-sided back pain) Physical Exam - Reviewed Nursing Documentation Reviewed: Yes Vital Signs Reviewed: Yes - Physical Exam Appears: Positive for: Non-toxic, No Acute Distress Head Exam: Positive for: ATRAUMATIC, NORMOCEPHALIC Skin: Positive for: Normal Color, Warm Eye Exam: Positive for: Normal appearance, EOMI, PERRL Cardiovascular/Chest: Positive for: Regular Rate, Rhythm. Negative for: Murmur Respiratory: Positive for: Normal Breath Sounds. Negative for: Wheezing Gastrointestinal/Abdominal: Positive for: Normal Exam, Soft. Negative for: Tenderness Back: Positive for: L CVA Tenderness (mild). Negative for: Normal Inspection, R CVA Tenderness Extremity: Positive for: Normal ROM. Negative for: Deformity, Swelling Neurologic/Psych: Positive for: Alert, Oriented. Negative for: Motor/Sensory Deficits - Laboratory Results Result Diagrams: 01/22/18 09:51 01/22/18 09:51 - ECG O2 Sat by Pulse Oximetry: 100 (RA) Pulse Ox Interpretation: Normal Medical Decision Making Medical Decision Making: Impression: UTI vs. Pyelonephritis vs. Kidney Stones Plan: * CT Abdomen/Pelvis with PO or IV Contrast * CBC * Urine Dip * Urine Preg * NaCl 1000 mLs at 1000 mLs/hr * Reevaluation Accession No. : [id number] Patient Name / ID : LASHAUN ROWLEY / [id number] Exam Date : 01/22/2018 10:16:31 ( Approved ) Study Comment : Sex / Age : F / 32Y Creator : Yadiel Brooks MD Dictator : Yadiel Brooks MD Arts Therapist : [address] : Yadiel Brooks MD Approver2 : Report Date : 01/22/2018 11:29:49 My Comment : PROCEDURE: CT Abdomen and Pelvis without intravenous contrast HISTORY: L flank pain COMPARISON: 07/12/2013 TECHNIQUE: Without contrast.. Contrast Dose: 0 Radiation dose: Total exam DLP = 1005.45 mGy-cm. This CT exam was performed using one or more of the following dose reduction techniques: Automated exposure control, adjustment of the mA and/or kV according to patient size, and/or use of iterative reconstruction technique. FINDINGS: LOWER THORAX: Unremarkable. LIVER: Mild hepatomegaly. Smooth contour. No mass or biliary dilatation. GALLBLADDER AND BILE DUCTS: Unremarkable. PANCREAS: Unremarkable. No gross lesion or ductal dilatation. SPLEEN: Unremarkable. ADRENALS: Unremarkable. No mass. KIDNEYS AND URETERS: No mass, calculus or hydronephrosis. No hydroureter. Cannot exclude nonobstructing distal left ureteral calculus due to the presence of numerous pelvic phleboliths. No obstructing calculus identified. VASCULATURE: Unremarkable. No aortic aneurysm. BOWEL: Unremarkable. No obstruction. No gross mural thickening. APPENDIX: Unremarkable. Normal appendix. PERITONEUM: Unremarkable. No free fluid. No free air. LYMPH NODES: Unremarkable. No enlarged lymph nodes. BLADDER: Unremarkable. REPRODUCTIVE: . Otherwise unremarkable. Unremarkable uterus BONES: No acute fracture. OTHER FINDINGS: None. IMPRESSION: No evidence obstructing urinary calculus. Cannot rule out nonobstructing distal left ureteral calculus due to presence of numerous pelvic phleboliths. No hydronephrosis or hydroureter. Mild hepatomegaly Pt ambulating around ED to vending machine and back without difficulty. Scribe Attestation: Documented by Kelly Mane, acting as a scribe for Marielos Magaña MD. Provider Scribe Attestation: All medical record entries made by the Scribe were at my direction and personally dictated by me. I have reviewed the chart and agree that the record accurately reflects my personal performance of the history, physical exam, medical decision making, and the department course for this patient. I have also personally directed, reviewed, and agree with the discharge instructions and disposition. Disposition - Clinical Impression Clinical Impression: Flank pain - Patient ED Disposition Is Patient to be Admitted: No - Disposition Referrals: [facility] [Outside] Disposition: Routine/Home Disposition Time: 11:56 Condition: STABLE Additional Instructions: FOLLOW-UP WITH PMD WITHIN 2 DAYS FOR REEVALUATION. Instructions: Flank Pain Forms: [employer] (Estonian)
--- NOTE | 2018-01-22 11:31 | CT ---
PROCEDURE: CT Abdomen and Pelvis without intravenous contrast HISTORY: L flank pain COMPARISON: 07/12/2013 TECHNIQUE: Without contrast.. Contrast Dose: 0 Radiation dose: Total exam DLP = 1005.45 mGy-cm. This CT exam was performed using one or more of the following dose reduction techniques: Automated exposure control, adjustment of the mA and/or kV according to patient size, and/or use of iterative reconstruction technique. FINDINGS: LOWER THORAX: Unremarkable. LIVER: Mild hepatomegaly. Smooth contour. No mass or biliary dilatation. GALLBLADDER AND BILE DUCTS: Unremarkable. PANCREAS: Unremarkable. No gross lesion or ductal dilatation. SPLEEN: Unremarkable. ADRENALS: Unremarkable. No mass. KIDNEYS AND URETERS: No mass, calculus or hydronephrosis. No hydroureter. Cannot exclude nonobstructing distal left ureteral calculus due to the presence of numerous pelvic phleboliths. No obstructing calculus identified. VASCULATURE: Unremarkable. No aortic aneurysm. BOWEL: Unremarkable. No obstruction. No gross mural thickening. APPENDIX: Unremarkable. Normal appendix. PERITONEUM: Unremarkable. No free fluid. No free air. LYMPH NODES: Unremarkable. No enlarged lymph nodes. BLADDER: Unremarkable. REPRODUCTIVE: . Otherwise unremarkable. Unremarkable uterus BONES: No acute fracture. OTHER FINDINGS: None. IMPRESSION: No evidence obstructing urinary calculus. Cannot rule out nonobstructing distal left ureteral calculus due to presence of numerous pelvic phleboliths. No hydronephrosis or hydroureter. Mild hepatomegaly
== END 2018-01-22 12:08 | disposition home or self-care (01) ==
LOC: H.ER 08:29
DX: R10.9 Unspecified abdominal pain (principal); F31.9 Bipolar disorder, unspecified; F41.9 Anxiety disorder, unspecified; I12.9 Hypertensive chronic kidney disease with stage 1 through stage 4 chronic kidney disease, or unspecified chronic kidney disease; K85.90 Acute pancreatitis without necrosis or infection, unspecified
CPT/HCPCS: 74176; 80053; 81003; 81025; 82948; 85025; 96360; 99283; J7040

== ENCOUNTER 2018-01-28 18:18 | Emergency (ER) | payer MEDICAID ==
[2018-01-28 18:29] VITALS: BP 161/96; PULSE 81; TEMP 98.1
[2018-01-28 18:30] VITALS: BMI 34.4
[2018-01-28 18:32] VITALS: RESP 20; O2SAT 98
--- NOTE | 2018-01-28 19:04 | ED PDOC ---
HPI: Psych/Substance Abuse Time Seen by Provider: 01/28/18 19:02 Chief Complaint (Nursing): Psychiatric Evaluation Chief Complaint (Provider): PSYCH EVAL History Per: Patient (32 Y/O FEMALE H/O DM/BIPOLAR DISORDER HERE WITH COMPLAINT OF DEPRESSION AND ONGOING PAIN IN LOWER EXTREMITY. WAS SEEN BY [facility] AND SENT TO ED FOR EVALUATION. PATIENT UPSET [facility] IS NOT IN ED AT THIS TIME AND IS REFUSING TO SPEAK TO PROVIDER.) Past Medical History Reviewed: Historical Data, Nursing Documentation, Vital Signs Vital Signs: Last Vital Signs Temp 98.1 F 01/28/18 18:29 Pulse 81 01/28/18 18:29 Resp 20 01/28/18 18:29 BP 161/96 H 01/28/18 18:29 Pulse Ox 98 01/28/18 18:29 - Medical History PMH: Anxiety (drug induced), Back Problems, Bipolar Disorder, Depression, Diabetes, Gastritis, Gastrointestinal Ulcer, Hiatal Hernia, HTN, Kidney Stones ( history), Pancreatitis, Chronic Kidney Disease (kidney stones) Denies: Hepatitis, HIV, Seizures, Sexually Transmitted Disease - Surgical History Surgical History: - Family History Family History: States: Unknown Family Hx - Immunization History Hx Tetanus Toxoid Vaccination: No Hx Influenza Vaccination: No Hx Pneumococcal Vaccination: No - Home Medications Home Medications: Ambulatory Orders Medication Instructions Recorded Micha Reynolds U-100 70 units SQ DAILY 09/29/17 Humulin N 09/29/17 Ibuprofen 400 mg PO DAILY PRN 09/29/17 Losartan 100 mg PO DAILY 09/29/17 Omeprazole 40 mg PO PRN PRN 09/29/17 - Allergies Allergies/Adverse Reactions: Allergies Allergy/AdvReac Type Severity Reaction Status Date / Time aripiprazole [From Abilify] Allergy ANAPHYLAXIS Verified 12/03/17 14:09 bupropion [From Wellbutrin] Allergy ANAPHYLAXIS Verified 12/03/17 14:09 escitalopram [From Lexapro] Allergy ANAPHYLAXIS Verified 12/03/17 14:09 lurasidone [From Latuda] Allergy ANAPHYLAXIS Verified 12/03/17 14:09 quetiapine [From Seroquel] Allergy ANAPHYLAXIS Verified 12/03/17 14:09 risperidone [From Risperdal] Allergy ANAPHYLAXIS Verified 12/03/17 14:09 topiramate [From Topamax] Allergy ANAPHYLAXIS Verified 12/03/17 14:09 ciprofloxacin [From Cipro] AdvReac RASH Verified 12/03/17 14:09 haloperidol [From Haldol] AdvReac FATIGUE Verified 12/03/17 14:09 haloperidol lactate AdvReac FATIGUE Verified 12/03/17 14:09 [From Haldol] ziprasidone HCl [From Geodon] AdvReac FATIGUE Verified 12/03/17 14:09 ziprasidone mesylate AdvReac FATIGUE Verified 12/03/17 14:09 [From Geodon] Review of Systems ROS Statement: Except As Marked, All Systems Reviewed And Found Negative Physical Exam - Reviewed Nursing Documentation Reviewed: Yes Vital Signs Reviewed: Yes - Physical Exam Appears: Positive for: Well, Non-toxic, No Acute Distress Head Exam: Positive for: ATRAUMATIC, NORMAL INSPECTION, NORMOCEPHALIC Skin: Positive for: Normal Color, Warm, DRY Eye Exam: Positive for: EOMI, Normal appearance, PERRL ENT: Positive for: Normal ENT Inspection Neck: Positive for: Normal, Painless ROM Cardiovascular/Chest: Positive for: Regular Rate, Rhythm Respiratory: Positive for: CNT, Normal Breath Sounds Gastrointestinal/Abdominal: Positive for: Normal Exam, Bowel Sounds, Soft Back: Positive for: Normal Inspection Extremity: Positive for: Normal ROM Neurologic/Psych: Positive for: Alert, Oriented - ECG O2 Sat by Pulse Oximetry: 98 - Progress ED Course And Treament: PATIENT EVALUATED BY CRISIS. PATIENT DENIES ANY SUICIDAL IDEATION OR PLAN. PENDING DISCUSSION WITH PSYCH ATTENDING HAS HAD ONGOING BACK PAIN/NECK PAIN SINCE 08/2017 AND IS PENDING XRY OF SPINE. WILL GIVE TORADOL 30 MG IM AND OBTAIN XRYS PRIOR TO D/C Disposition - Clinical Impression Clinical Impression: Depression - Patient ED Disposition Is Patient to be Admitted: Transfer of Care - Disposition Disposition: Transfer of Care Disposition Time: 20:00 Condition: FAIR Instructions: Depression Forms: [employer] (Urdu) Patient Signed Over To: Nataly Tristan Handoff Comments: PENDING CRISIS EVAL/XRY EVAL
--- NOTE | 2018-01-28 20:39 | ED PDOC ---
- ECG O2 Sat by Pulse Oximetry: 98 - Other Rad cspine xray X-Ray: Viewed By Me X-Ray Interpretation: no acute findings xray tspine X-Ray: Viewed By Me X-Ray Interpretation: no acute findings xray lspine X-Ray: Viewed By Me X-Ray Interpretation: no acute findings - Progress ED Course And Treament: Case endorsed to telegraphic typewriter repairer from Jean MENDOZA pending imaging. Patient educated on findings, discharged with rx Naproxen, Flexeril. Advised follow up PMD 2-3 days. Return precautions given. Disposition - Clinical Impression Clinical Impression: Neck pain, Back pain, Anxiety - POA Present On Arrival: None - Disposition Disposition: Routine/Home Disposition Time: 20:38 Condition: IMPROVED Prescriptions: Cyclobenzaprine [Cyclobenzaprine HCl] 10 mg PO BID PRN #14 tab PRN Reason: Muscle Spasm Naproxen [Naprosyn] 500 mg PO Q12 PRN #20 tablet PRN Reason: Pain, Moderate (4-7) Instructions: Neck Pain, Low Back Pain (DC), Anxiety, Adult (DC), Upper Back Pain (DC) Forms: [employer] (Arabic)
--- NOTE | 2018-01-29 09:56 | RAD ---
HISTORY: SPINAL TENDERNESS COMPARISON: Chest radiograph dated 03/01/2016. FINDINGS: BONES: Alignment maintained. No fracture. DISC SPACES: Normal. SOFT TISSUES: Normal. OTHER FINDINGS: None. IMPRESSION: Normal radiographs of the thoracic spine.
--- NOTE | 2018-01-29 09:56 | RAD ---
PROCEDURE: Cervical Spine Radiographs. HISTORY: Pain. COMPARISON: None. FINDINGS: BONES: Alignment maintained. No fracture. Dens Intact. DISC SPACES: Normal. SOFT TISSUES: Normal. No prevertebral soft tissue swelling. OTHER FINDINGS: None. IMPRESSION: Normal cervical spine radiographs
--- NOTE | 2018-01-29 09:57 | RAD ---
PROCEDURE: Radiographs of the Lumbar Spine. HISTORY: BACK PAIN COMPARISON: CT scan of the abdomen and pelvis dated 01/22/2018. FINDINGS: BONES: Normal alignment. No listhesis. No fracture. DISC SPACES: Unremarkable. OTHER FINDINGS: None. IMPRESSION: Unremarkable radiographs of the lumbar spine.
== END 2018-01-28 20:50 | disposition home or self-care (01) ==
LOC: H.ER 18:18
DX: F41.9 Anxiety disorder, unspecified (principal); F31.9 Bipolar disorder, unspecified; M54.2 Cervicalgia; M54.9 Dorsalgia, unspecified; I12.9 Hypertensive chronic kidney disease with stage 1 through stage 4 chronic kidney disease, or unspecified chronic kidney disease; K85.90 Acute pancreatitis without necrosis or infection, unspecified
CPT/HCPCS: 72040; 72070; 72100; 81025; 82948; 96372; 99284; J1885

== ENCOUNTER 2018-08-06 22:04 | Emergency (ER) | payer MEDICAID, OTHER ==
[2018-08-06 22:04] VITALS: BMI 34.1
[2018-08-06 22:14] VITALS: O2SAT 99
[2018-08-06 22:45] LABS: SQUAMOUS EPITHIAL 13 /hpf (0-5); URINE AMORPHOUS SEDIMENT OCC /ul (<OCC); URINE BACTERIA RARE (<OCC); URINE BILIRUBIN NEGATIVE (NEGATIVE); URINE BLOOD LARGE (NEGATIVE); URINE CLARITY CLOUDY (Clear); URINE COLOR YELLOW (YELLOW); URINE GLUCOSE (UA) >=500 mg/dL (Normal); URINE LEUKOCYTE ESTERASE NEG Leu/uL (Negative); URINE PROTEIN 30 mg/dL (NEGATIVE); URINE UROBILINOGEN 0.2-1.0 mg/dL (0.2-1.0)
--- NOTE | 2018-08-06 23:10 | ED PDOC ---
HPI: Psych/Substance Abuse Time Seen by Provider: 08/06/18 22:21 Chief Complaint (Nursing): Substance Abuse Chief Complaint (Provider): Crisis evaluation ED Caveat: Uncooperative History Per: EMS History/Exam Limitations: clinical condition Onset/Duration Of Symptoms: Hrs (today) Current Symptoms Are (Timing): Still Present Additional Complaint(s): Deborah Hernandez is a 33 year old female, with a past history of substance abuse , well known to provider and ED for multiple visits who was brought to the emergency department by EMS after she was found with labile affect inclined. Patient unwilling to provide further history. Of note, patient has a history of PCP abuse in the past. PMD: None provided. Past Medical History Reviewed: Historical Data, Nursing Documentation, Vital Signs Vital Signs: Last Vital Signs Temp 98.2 F 08/06/18 22:09 Pulse 92 H 08/06/18 22:09 Resp 16 08/06/18 22:09 BP 180/117 H 08/06/18 22:09 Pulse Ox 99 08/06/18 22:09 - Medical History PMH: Anxiety (drug induced), Back Problems, Bipolar Disorder, Depression, Diabetes, Gastritis, Gastrointestinal Ulcer, Hiatal Hernia, HTN, Kidney Stones ( history), Pancreatitis, Chronic Kidney Disease (kidney stones) Denies: Hepatitis, HIV, Seizures, Sexually Transmitted Disease - Surgical History Surgical History: - Family History Family History: States: Unknown Family Hx - Social History Drugs: Other (PCP) - Immunization History Hx Tetanus Toxoid Vaccination: No Hx Influenza Vaccination: No Hx Pneumococcal Vaccination: No - Home Medications Home Medications: Ambulatory Orders Medication Instructions Recorded Omeprazole 20 mg PO QOD6 03/09/18 Insulin Glargine,Hum.rec.anlog 50 units SQ DAILY PRN 04/23/18 [Basaglar Kwikpen U-100] Cephalexin [Keflex] 500 mg PO Q6 #28 cap 06/27/18 - Allergies Allergies/Adverse Reactions: Allergies Allergy/AdvReac Type Severity Reaction Status Date / Time aripiprazole [From Abilify] Allergy ANAPHYLAXIS Verified 06/27/18 18:27 bupropion [From Wellbutrin] Allergy ANAPHYLAXIS Verified 06/27/18 18:27 escitalopram [From Lexapro] Allergy ANAPHYLAXIS Verified 06/27/18 18:27 acetaminophen AdvReac Verified 06/27/18 18:27 [From Tylenol-Codeine #3] buprenorphine [From Suboxone] AdvReac Verified 06/27/18 18:27 ciprofloxacin [From Cipro] AdvReac RASH Verified 06/27/18 18:27 codeine AdvReac Verified 06/27/18 18:27 [From Tylenol-Codeine #3] gabapentin [From Neurontin] AdvReac Verified 06/27/18 18:27 haloperidol [From Haldol] AdvReac FATIGUE Verified 06/27/18 18:27 haloperidol lactate AdvReac FATIGUE Verified 06/27/18 18:27 [From Haldol] lurasidone [From Latuda] AdvReac ANAPHYLAXIS Verified 06/27/18 18:27 naloxone [From Suboxone] AdvReac Verified 06/27/18 18:27 quetiapine [From Seroquel] AdvReac ANAPHYLAXIS Verified 06/27/18 18:27 risperidone [From Risperdal] AdvReac ANAPHYLAXIS Verified 06/27/18 18:27 topiramate [From Topamax] AdvReac ANAPHYLAXIS Verified 06/27/18 18:27 ziprasidone HCl [From Geodon] AdvReac FATIGUE Verified 06/27/18 18:27 ziprasidone mesylate AdvReac FATIGUE Verified 06/27/18 18:27 [From Geodon] Review of Systems Review Of Systems: ROS cannot be obtained secondary to pt's inabilty to answer questions. Physical Exam - Reviewed Nursing Documentation Reviewed: Yes Vital Signs Reviewed: Yes - Physical Exam Appears: Positive for: No Acute Distress Head Exam: Positive for: ATRAUMATIC, NORMAL INSPECTION, NORMOCEPHALIC Skin: Positive for: Normal Color, Warm, Dry Eye Exam: Positive for: Normal appearance, EOMI, PERRL Neck: Positive for: Painless ROM Cardiovascular/Chest: Positive for: Regular Rate, Rhythm. Negative for: Murmur Respiratory: Positive for: Normal Breath Sounds. Negative for: Respiratory Distress Gastrointestinal/Abdominal: Positive for: Normal Exam, Soft. Negative for: Tenderness Extremity: Positive for: Normal ROM (upper and lower extremities). Negative for : Deformity, Swelling Neurologic/Psych: Positive for: Alert, Mood/Affect (crying and labile ) - ECG O2 Sat by Pulse Oximetry: 99 (RA) Pulse Ox Interpretation: Normal Medical Decision Making Medical Decision Making: Time: 22:21 Initial Impression: 33 y/o female for crisis evaluation with labile affect and possible underlying substance abuse Initial Plan: --Drug screen, urine --Urine dipstick --Urine --Reevaluation 01:40 -Patient remains calm and appropriate for disposition. She continues to deny any psychiatric complaints. Urine was positive for PCP. Patient is medically stable for discharge, diagnosis of PCP abuse. ----- Scribe Attestation: Documented by Guzman Noel, acting as a scribe for Karel Shane MD. Provider Scribe Attestation: All medical record entries made by the Scribe were at my direction and personally dictated by me. I have reviewed the chart and agree that the record accurately reflects my personal performance of the history, physical exam, medical decision making, and the department course for this patient. I have also personally directed, reviewed, and agree with the discharge instructions and disposition. Disposition - Clinical Impression Clinical Impression: PCP (phencyclidine) abuse - Disposition Disposition: Routine/Home Disposition Time: 01:40 Condition: STABLE Instructions: Drug Abuse and Drug Addiction (DC) Forms: [employer] (Micronesian)
[2018-08-06 23:22] LABS: BARBITURATES, UR NEGATIVE (NEGATIVE); BENZODIAZEPINES, UR NEGATIVE (NEGATIVE); OPIATES, UR NEGATIVE (NEGATIVE); PHENCYCLIDINE, UR POSITIVE (NEGATIVE)
[2018-08-07 02:00] VITALS: PULSE 84; RESP 17
[2018-08-07 02:01] VITALS: BP 141/94; TEMP 98.4
== END 2018-08-07 01:45 | disposition home or self-care (01) ==
LOC: H.ER 22:04
DX: F16.10 Hallucinogen abuse, uncomplicated (principal); F31.9 Bipolar disorder, unspecified; F41.9 Anxiety disorder, unspecified; I12.9 Hypertensive chronic kidney disease with stage 1 through stage 4 chronic kidney disease, or unspecified chronic kidney disease; Z79.4 Long term (current) use of insulin; Z88.5 Allergy status to narcotic agent

== ENCOUNTER 2018-12-09 00:49 | Emergency (ER) | payer MEDICAID ==
[2018-12-09 00:49] VITALS: BMI 34.1
[2018-12-09 01:26] VITALS: TEMP 98.2
--- NOTE | 2018-12-09 01:58 | ED PDOC ---
HPI: Chest Pain Time Seen by Provider: 12/09/18 01:24 Chief Complaint (Nursing): Anxiety Chief Complaint (Provider): chest pain History Per: Patient (Pt presents to the ED with complaints of two weeks of hypertension that is not controlled by her 0.1mg clonidine and accompanied by left sided radiating chest pain. Pt acknowledges that she does not take her prescribed Losartan HCTZ or her insulin but does take her suboxone (for pain only) and omeprazole. Pt denies SOB, GLOVER or any other cardiac history; pt is an insulin dependent diabetic) Past Medical History Reviewed: Historical Data, Nursing Documentation, Vital Signs Vital Signs: Last Vital Signs Temp 98.2 F 12/09/18 01:21 Pulse 106 H 12/09/18 01:21 Resp 16 12/09/18 01:21 BP 186/94 H 12/09/18 01:21 Pulse Ox 97 12/09/18 01:21 - Medical History PMH: Anxiety, Back Problems, Bipolar Disorder, Depression, Diabetes, Gastritis, Gastrointestinal Ulcer, Hiatal Hernia, HTN, Kidney Stones, Pancreatitis, Chronic Kidney Disease Denies: Hepatitis, HIV, Seizures, Sexually Transmitted Disease - Surgical History Surgical History: - Family History Family History: States: Unknown Family Hx - Immunization History Hx Tetanus Toxoid Vaccination: No Hx Influenza Vaccination: No Hx Pneumococcal Vaccination: No - Home Medications Home Medications: Ambulatory Orders Medication Instructions Recorded Omeprazole 20 mg PO Q6 03/09/18 Insulin Glargine,Hum.rec.anlog 0 units SQ DAILY PRN 04/23/18 [Basaglar Kwikpen U-100] Ibuprofen [Motrin] 600 mg PO Q6 PRN #20 tab 09/11/18 Losartan [Cozaar] 12.5 mg PO DAILY 11/28/18 - Allergies Allergies/Adverse Reactions: Allergies Allergy/AdvReac Type Severity Reaction Status Date / Time aripiprazole [From Abilify] Allergy ANAPHYLAXIS Verified 06/27/18 18:27 bupropion [From Wellbutrin] Allergy ANAPHYLAXIS Verified 06/27/18 18:27 escitalopram [From Lexapro] Allergy ANAPHYLAXIS Verified 06/27/18 18:27 acetaminophen AdvReac Verified 06/27/18 18:27 [From Tylenol-Codeine #3] buprenorphine [From Suboxone] AdvReac Verified 06/27/18 18:27 ciprofloxacin [From Cipro] AdvReac RASH Verified 06/27/18 18:27 codeine AdvReac Verified 06/27/18 18:27 [From Tylenol-Codeine #3] gabapentin [From Neurontin] AdvReac Verified 06/27/18 18:27 haloperidol [From Haldol] AdvReac FATIGUE Verified 06/27/18 18:27 haloperidol lactate AdvReac FATIGUE Verified 06/27/18 18:27 [From Haldol] lurasidone [From Latuda] AdvReac ANAPHYLAXIS Verified 06/27/18 18:27 naloxone [From Suboxone] AdvReac Verified 06/27/18 18:27 quetiapine [From Seroquel] AdvReac ANAPHYLAXIS Verified 06/27/18 18:27 risperidone [From Risperdal] AdvReac ANAPHYLAXIS Verified 06/27/18 18:27 topiramate [From Topamax] AdvReac ANAPHYLAXIS Verified 06/27/18 18:27 ziprasidone HCl [From Geodon] AdvReac FATIGUE Verified 06/27/18 18:27 ziprasidone mesylate AdvReac FATIGUE Verified 06/27/18 18:27 [From Geodon] MALENA Risk Score for UA/NSTEMI - MALENA Risk Score Age > 64: NO 3 or more CAD Risk Factors: NO Known CAD (Stenosis greater than 50%): NO Aspirin use in past 7 days: NO Severe Angina: NO EKG ST changes greater than 0.5mm: NO Positive Cardiac Marker: NO MALENA Score: 0 Risk %: 5% Review of Systems ROS Statement: Except As Marked, All Systems Reviewed And Found Negative Constitutional: Negative for: Fever Cardiovascular: Positive for: Chest Pain Respiratory: Negative for: Cough, Shortness of Breath Neurological: Positive for: Headache Physical Exam - Reviewed Nursing Documentation Reviewed: Yes Vital Signs Reviewed: Yes - Physical Exam Appears: Positive for: Well, Non-toxic, No Acute Distress. Negative for: Uncomfortable Head Exam: Positive for: ATRAUMATIC, NORMAL INSPECTION Skin: Positive for: Normal Color, Warm, Dry. Negative for: Diaphoresis, Pallor, Rash Eye Exam: Positive for: Normal appearance, EOMI, PERRL. Negative for: Nystagmus, Periorbital swelling, Periorbital tenderness ENT: Positive for: Normal ENT Inspection Neck: Positive for: Normal, Painless ROM, Supple. Negative for: Decreased ROM Cardiovascular/Chest: Positive for: Regular Rate, Rhythm, Chest Non Tender. Negative for: Edema, Bradycardia, Tachycardia Respiratory: Positive for: Normal Breath Sounds. Negative for: Wheezing, Respiratory Distress, Plerual Rub Pulses-Carotid (L): 2+ Pulses-Carotid (R): 2+ Pulses-Radial (L): 2+ Pulses-Radial (R): 2+ Gastrointestinal/Abdominal: Positive for: Normal Exam, Bowel Sounds, Soft. Negative for: Tenderness, Organomegaly, Distended, Guarding Neurologic/Psych: Positive for: Alert, cloth dyer II-XII, Oriented, Mood/Affect - Laboratory Results Result Diagrams: 12/09/18 02:25 12/09/18 02:25 Urine POC: Negative Urine dip results: Negative for: Leukocyte Esterase, Blood, Nitrate, Ketones, Glucose - ECG ECG: Positive for: Interpreted By Me O2 Sat by Pulse Oximetry: 97 - Radiology X-Ray: Interpreted by Tn X-Ray Interpretation: No Acute Disease Disposition - Clinical Impression Clinical Impression: Chest discomfort - Patient ED Disposition Is Patient to be Admitted: No Doctor Will See Patient In The: Office Counseled Patient/Family Regarding: Studies Performed, Diagnosis, Need For Followup - Disposition Referrals: [facility] [Outside] Disposition: Routine/Home Disposition Time: 04:35 Condition: STABLE Instructions: Chest Pain That Is Not Caused by the Heart (DC) Forms: [employer] (Urdu)
[2018-12-09 02:34] LABS: BASO # 0.1 K/uL (0.0-0.2); BASO % 0.8 % (0.0-2.0); EOS # 0.1 K/uL (0.0-0.7); EOS % 0.6 % (0.0-4.0); HEMOGLOBIN 12.8 g/dL (12.0-16.0); LYMPH # 3.7 K/uL (1.0-4.3); LYMPH % 24.7 % (20.0-40.0); MEAN CELL VOLUME 92.4 fl (81.0-99.0); MEAN CORPUSCULAR HEMOGLOBIN 31.1 pg (27.0-31.0); MEAN CORPUSCULAR HGB CONC 33.6 g/dL (33.0-37.0); MEAN PLATELET VOLUME 9.8 fl (7.2-11.7); MONO % 6.8 % (0.0-10.0); NEUT % 67.1 % (50.0-75.0); RBC 4.13 Mil/uL (3.80-5.20); RED CELL DISTRIBUTION WIDTH 13.8 % (11.5-14.5); WHITE BLOOD COUNT 14.9 K/uL (4.8-10.8)
[2018-12-09 02:40] LABS: SQUAMOUS EPITHIAL 8 /hpf (0-5); URINE BACTERIA MOD (<OCC); URINE BILIRUBIN NEGATIVE (NEGATIVE); URINE BLOOD NEGATIVE (NEGATIVE); URINE CLARITY CLEAR (Clear); URINE COLOR STRAW (YELLOW); URINE GLUCOSE (UA) NEG (NEGATIVE); URINE LEUKOCYTE ESTERASE NEG Leu/uL (Negative); URINE PROTEIN NEGATIVE (NEGATIVE); URINE UROBILINOGEN 0.2-1.0 mg/dL (0.2-1.0)
[2018-12-09 02:44] LABS: ALB/GLOB RATIO 1.4 (1.0-2.1); ALBUMIN 4.1 g/dL (3.5-5.0); ALT/SGPT 21 U/L (9-52); AST/SGOT 26 U/L (14-36); BLOOD UREA NITROGEN 10 mg/dl (7-17); CALCIUM 9.8 mg/dL (8.4-10.2); GFR NON-AFRICAN AMERICAN > 60; LIPASE 30 U/L (23-300)
[2018-12-09 02:56] LABS: BARBITURATES, UR NEGATIVE (NEGATIVE); BENZODIAZEPINES, UR NEGATIVE (NEGATIVE); OPIATES, UR NEGATIVE (NEGATIVE); PHENCYCLIDINE, UR POSITIVE (NEGATIVE)
[2018-12-09 04:24] VITALS: BP 101/50; PULSE 73; RESP 18
[2018-12-09 04:27] VITALS: O2SAT 97
--- NOTE | 2018-12-09 10:05 | RAD ---
Date of service: 12/09/2018 HISTORY: chest pain COMPARISON: 06/04/2017 TECHNIQUE: Chest PA and lateral FINDINGS: LUNGS: No active pulmonary disease. PLEURA: No significant pleural effusion identified. No pneumothorax apparent. CARDIOVASCULAR: No aortic atherosclerotic calcification present. Normal cardiac size. No pulmonary vascular congestion. OSSEOUS STRUCTURES: No significant abnormalities. VISUALIZED UPPER ABDOMEN: Normal. OTHER FINDINGS: None. IMPRESSION: No active disease.
--- NOTE | 2018-12-09 19:06 | CARD ---
APPROVED REPORT Date of service: 12/09/2018 EKG Measurement Heart [id number] <Conclusion> Normal sinus rhythm Normal Electrocardiogram
== END 2018-12-09 05:01 | disposition home or self-care (01) ==
LOC: H.ER 00:49
DX: R07.89 Other chest pain (principal); I10 Essential (primary) hypertension